=== PATIENT | male | born 1950 | race Two or more races ===

== ENCOUNTER 2016-12-15 23:18 | Emergency (ER) | payer OTHER, MEDICAID ==
[~2016-12-15] VITALS: Ht 165.1 cm; Wt 73.5 kg
[~2016-12-15 23:18] MED LIST: ALLO300T2 PO; AMIT50TA3 PO; BACL10TA PO; CLOP75TA41 PO; HYDR25TA4 PO; SIMV10TA84 PO; SUC1LQ PO; TAMS0.4C36 PO; VENL25TA2 PO
[2016-12-16 01:02] LABS: Basophils # (auto) 0 uL; Basophils % (auto) 0.3 % (0.0-2.0); Eosinophils # (auto) 0.2 uL; Eosinophils % (auto) 3.8 % (0.0-7.0); Hemoglobin 13.2 g/dL (13.5-17.5); Lymphocytes # (auto) 0.9 uL; Lymphocytes % (auto) 14.8 % (10.0-50.0); Mean Corpuscular Hemoglobin 30.2 pg (28.0-32.0); Mean Corpuscular Hgb Conc. 33.9 g/dL (32.0-36.0); Mean Corpuscular Volume 88.9 fL (80.0-100.0); Mean Platelet Volume 9.2 fL (7.4-10.4); Monocytes # (auto) 0.8 uL; Monocytes % (auto) 12.4 % (0.0-12.0); Neutrophils # (auto) 4.3 uL; Neutrophils % (auto) 68.7 % (37.0-80.0); Platelet Count (auto) 206 10^3/uL (140-450); Red Cell Distribution Width 13.3 % (11.6-16.0); White Blood Cell 6.2 10^3/uL (4.4-10.8)
[2016-12-16 01:21] LABS: Albumin 3.7 g/dL (3.4-5.0); Amylase 61 U/L (25-115); Anion Gap 10 (5-15); Aspartate Aminotransferase 17 U/L (15-37); BUN/Creatinine Ratio 13.5; Blood Urea Nitrogen 13 mg/dL (7-18); Calcium 8.6 mg/dL (8.5-10.1); Carbon Dioxide 26 mmol/L (21-32); Chloride 108 mmol/L (98-107); GFR African American 101 mL/min; GFR Non-African American 83 mL/min; Glucose 98 mg/dL (74-106); Magnesium 2.8 mg/dL (1.6-2.6); Potassium 3.5 mmol/L (3.5-5.1); Sodium 144 mmol/L (136-145)
[2016-12-16 01:26] LABS: Alkaline Phosphatase 96 U/L (45-117); Bilirubin, Total 0.5 mg/dL (0.2-1.0); Total Protein 7.7 g/dL (6.4-8.2)
[2016-12-16] MEDS ORDERED: SODIUM CHLORIDE 0.9% 1,000 ML IV ONE (03:00)
[2016-12-16] MEDS ORDERED: HYDROmorphone HCL 2 MG/ML VL IV ONE (03:00)
[2016-12-16] MEDS ORDERED: ONDANSETRON HCL 4 MG/2 ML VIAL IV ONE (03:00)
[2016-12-16 05:51] LABS: Urine RBC None Seen /hpf (0 - 3)
[2016-12-16 06:12] LABS: Urine Bilirubin Negative (Negative); Urine Blood Negative /uL (Negative); Urine Color Yellow (Yellow); Urine Glucose Normal (Normal); Urine Ketone Negative (Negative); Urine Nitrite Negative (Negative); Urine Urobilinogen Normal (Negative); Urine pH 6.5 (5.0-8.0)
[2016-12-16 09:23] VITALS: BP 143/90
== END 2016-12-16 09:40 | disposition home or self-care (01) ==
LOC: ER 23:19
DX: K44.9 Diaphragmatic hernia without obstruction or gangrene (principal); K57.30 Diverticulosis of large intestine without perforation or abscess without bleeding; C18.9 Malignant neoplasm of colon, unspecified; C79.89 Secondary malignant neoplasm of other specified sites; I25.10 Atherosclerotic heart disease of native coronary artery without angina pectoris; J44.9 Chronic obstructive pulmonary disease, unspecified; E11.9 Type 2 diabetes mellitus without complications; K21.9 Gastro-esophageal reflux disease without esophagitis; M10.9 Gout, unspecified; E78.5 Hyperlipidemia, unspecified; I10 Essential (primary) hypertension; I25.2 Old myocardial infarction; Z90.49 Acquired absence of other specified parts of digestive tract; D64.9 Anemia, unspecified; Z85.46 Personal history of malignant neoplasm of prostate; Z79.899 Other long term (current) drug therapy
CPT/HCPCS: 36415; 74176; 80053; 81001; 82150; 83690; 83735; 84484; 85025; 93005; 96361; 96374; 96375; 99285; J1170; J2405

== ENCOUNTER 2017-01-26 15:17 | Emergency (ER) | payer OTHER, MEDICAID ==
[~2017-01-26] VITALS: Ht 160 cm; Wt 78.0 kg
[2017-01-26 16:38] LABS: Albumin 3.7 g/dL (3.4-5.0); BUN/Creatinine Ratio 9.2; Calcium 8.3 mg/dL (8.5-10.1); Potassium 3.8 mmol/L (3.5-5.1)
[2017-01-26 16:41] LABS: Bilirubin, Total 0.3 mg/dL (0.2-1.0); Total Protein 7.3 g/dL (6.4-8.2)
[2017-01-26 17:36] LABS: Basophils # (auto) 0.1 uL; Basophils % (auto) 0.9 % (0.0-2.0); Eosinophils # (auto) 0.4 uL; Eosinophils % (auto) 6.1 % (0.0-7.0); Hematocrit 41.2 % (41.0-53.0); Lymphocytes # (auto) 0.8 uL; Lymphocytes % (auto) 11.2 % (10.0-50.0); Mean Corpuscular Hemoglobin 30.8 pg (28.0-32.0); Mean Corpuscular Volume 90.6 fL (80.0-100.0); Mean Platelet Volume 9.1 fL (6.9-10.8); Monocytes # (auto) 0.8 uL; Neutrophils # (auto) 5.1 uL; Neutrophils % (auto) 70.8 % (37.0-80.0); Nucleated Red Blood Cells % 0.4 %; Platelet Count (auto) 196 10^3/uL (140-450); Red Cell Distribution Width 14.3 % (11.8-14.3); White Blood Cell 7.2 10^3/uL (4.4-10.8)
[2017-01-26] MEDS ORDERED: ONDANSETRON HCL 4 MG/2 ML VIAL IV ONE (21:45)
[2017-01-26] MEDS ORDERED: MORPHINE SULF INJ 2 MG/ML SYRINGE 1ML IV ONE (21:45)
[2017-01-26 22:38] LABS: Basophils # (auto) 0.1 uL; Basophils % (auto) 1.1 % (0.0-2.0); Eosinophils # (auto) 0.5 uL; Eosinophils % (auto) 7.6 % (0.0-7.0); Hematocrit 38.8 % (41.0-53.0); Hemoglobin 13.2 g/dL (13.5-17.5); Lymphocytes # (auto) 0.9 uL; Lymphocytes % (auto) 14.7 % (10.0-50.0); Mean Corpuscular Hemoglobin 30.9 pg (28.0-32.0); Mean Corpuscular Hgb Conc. 34.1 g/dL (32.0-36.0); Mean Corpuscular Volume 90.6 fL (80.0-100.0); Mean Platelet Volume 8.3 fL (6.9-10.8); Monocytes # (auto) 0.8 uL; Monocytes % (auto) 12.7 % (0.0-12.0); Neutrophils # (auto) 3.9 uL; Neutrophils % (auto) 63.9 % (37.0-80.0); Nucleated Red Blood Cells % 0.2 %; Platelet Count (auto) 181 10^3/uL (140-450); Red Cell Distribution Width 14.3 % (11.8-14.3); White Blood Cell 6.1 10^3/uL (4.4-10.8)
[2017-01-26 22:57] LABS: Albumin 3.3 g/dL (3.4-5.0); Anion Gap 5 (5-15); Aspartate Aminotransferase 15 U/L (15-37); BUN/Creatinine Ratio 11.7; Blood Urea Nitrogen 9 mg/dL (7-18); Calcium 8.2 mg/dL (8.5-10.1); Carbon Dioxide 26 mmol/L (21-32); Chloride 112 mmol/L (98-107); GFR African American 130 mL/min; GFR Non-African American 107 mL/min; Glucose 106 mg/dL (74-106); Potassium 4.1 mmol/L (3.5-5.1); Sodium 143 mmol/L (136-145)
[2017-01-26 22:58] LABS: Partial Thromboplastin Time 25.9 sec (22.64-33.71); Prothrombin Time 10.9 sec (9.37-12.3)
[2017-01-26 23:02] LABS: Alkaline Phosphatase 83 U/L (45-117); Bilirubin, Total 0.3 mg/dL (0.2-1.0); Total Protein 6.9 g/dL (6.4-8.2)
[2017-01-27 00:01] LABS: Urine RBC None Seen /hpf (0 - 3)
[2017-01-27 00:15] LABS: Urine Bilirubin Negative (Negative); Urine Blood Negative /uL (Negative); Urine Color Yellow (Yellow); Urine Glucose Normal (Normal); Urine Ketone Negative (Negative); Urine Mucus FEW (None Seen); Urine Nitrite Negative (Negative); Urine Squamous Epithelial Cell FEW /hpf (<5); Urine pH 5.5 (5.0-8.0)
[2017-01-27 00:25] VITALS: BP 124/54
== END 2017-01-27 01:11 | disposition home or self-care (01) ==
LOC: ER 15:17 → EDUNIT# 15:17 → ER 01-27 01:11
DX: K46.9 Unspecified abdominal hernia without obstruction or gangrene (principal); I10 Essential (primary) hypertension
CPT/HCPCS: 36415; 74176; 80053; 81001; 84484; 85025; 85610; 85730; 93005; 96374; 96375; 99285; J2270; J2405

== ENCOUNTER 2017-10-14 16:44 | Inpatient (IN) | payer OTHER, MEDICAID ==
[~2017-10-14] VITALS: Ht 172.7 cm; Wt 75.4 kg
[~2017-10-14 16:44] MED LIST changes: -SUC1LQ PO; +SUCR1SUS10 PO
[2017-10-14] MEDS ORDERED: SODIUM CHLORIDE 0.9% 1,000 ML IV ONE (16:55)
[2017-10-14] MEDS ORDERED: PANTOPRAZOLE 40 MG/10 ML VIAL IV STA (16:55)
[2017-10-14] MEDS ORDERED: ONDANSETRON HCL 4 MG/2 ML VIAL IV ONE (17:00)
[2017-10-14] MEDS ORDERED: MEPERIDINE HCL (25 MG/ML) 1ML VIAL IV ONE (17:00)
[2017-10-14 17:20] LABS: Basophils # (auto) 0 uL; Basophils % (auto) 0.3 % (0.0-2.0); Eosinophils # (auto) 0 uL; Eosinophils % (auto) 0.3 % (0.0-7.0); Hematocrit 44.4 % (41.0-53.0); Hemoglobin 15.2 g/dL (13.5-17.5); Lymphocytes # (auto) 0.5 uL; Lymphocytes % (auto) 4.8 % (10.0-50.0); Mean Corpuscular Hemoglobin 30.3 pg (28.0-32.0); Mean Corpuscular Hgb Conc. 34.2 g/dL (32.0-36.0); Mean Corpuscular Volume 88.7 fL (80.0-100.0); Monocytes # (auto) 0.6 uL; Monocytes % (auto) 5.6 % (0.0-12.0); Neutrophils # (auto) 9.8 uL; Platelet Count (auto) 222 10^3/uL (140-450); Red Blood Cells 5.01 10^6/uL (4.5-5.90); Red Cell Distribution Width 14.5 % (11.8-14.3)
[2017-10-14 17:41] LABS: Alanine Aminotransferase 17 U/L (16-61); Albumin 3.8 g/dL (3.4-5.0); Alkaline Phosphatase 103 U/L (45-117); Amylase 58 U/L (25-115); Anion Gap 12 (5-15); Aspartate Aminotransferase 10 U/L (15-37); BUN/Creatinine Ratio 18.1; Bilirubin, Total 0.4 mg/dL (0.2-1.0); Blood Urea Nitrogen 15 mg/dL (7-18); Calcium 8.7 mg/dL (8.5-10.1); Carbon Dioxide 19 mmol/L (21-32); Chloride 103 mmol/L (98-107); GFR African American 119 mL/min; GFR Non-African American 98 mL/min; Glucose 169 mg/dL (74-106); Lipase 100 U/L (73-393); Magnesium 2.2 mg/dL (1.6-2.6); Potassium 3.7 mmol/L (3.5-5.1); Sodium 134 mmol/L (136-145); Total Protein 8.1 g/dL (6.4-8.2)
[2017-10-14] MEDS ORDERED: MEPERIDINE HCL (50 MG/ML) 1 ML VIAL ONE (18:24)
[2017-10-14] MEDS ORDERED: fentaNYL CITRATE 100 MCG/2 ML VL IV ONE (19:45)
[2017-10-14] MEDS ORDERED: ONDANSETRON HCL 4 MG/2 ML VIAL IV PRN (20:45)
[2017-10-14] MEDS ORDERED: ACETAMINOPHEN 325 MG TAB PO PRN (20:45)
[2017-10-14] MEDS: VENLAFAXINE HCL 37.5MG TABLET PO SCH (22:30)
[2017-10-14] MEDS: FAMOTIDINE 20 MG TAB PO SCH (22:30)
[2017-10-14] MEDS: metroNIDAZOLE 500MG/100ML 100 ML IV SCH (22:30)
[2017-10-15] MEDS: NALBUPHINE HCL 10 MG/1ml INJECTION IV PRN ×5 (00:25→19:51)
[2017-10-15 01:43] LABS: Urine Bacteria NONE SEEN /hpf (None Seen); Urine Blood Negative /uL (Negative); Urine Mucus FEW (None Seen); Urine Specific Gravity 1.022 (1.001-1.035); Urine WBC <1 /hpf (0 - 3)
[2017-10-15] MEDS: metroNIDAZOLE 500MG/100ML 100 ML IV SCH ×3 (06:04→21:18)
[2017-10-15 06:12] LABS: Basophils # (auto) 0 uL; Basophils % (auto) 0.3 % (0.0-2.0); Eosinophils # (auto) 0.2 uL; Eosinophils % (auto) 2.5 % (0.0-7.0); Hematocrit 38.3 % (41.0-53.0); Hemoglobin 13.4 g/dL (13.5-17.5); Lymphocytes # (auto) 0.9 uL; Lymphocytes % (auto) 11.7 % (10.0-50.0); Mean Corpuscular Hemoglobin 30.5 pg (28.0-32.0); Mean Corpuscular Volume 87.2 fL (80.0-100.0); Monocytes # (auto) 0.9 uL; Monocytes % (auto) 12.8 % (0.0-12.0); Neutrophils # (auto) 5.3 uL; Neutrophils % (auto) 72.7 % (37.0-80.0); Nucleated Red Blood Cells % 0.1 %; Platelet Count (auto) 191 10^3/uL (140-450); Red Blood Cells 4.39 10^6/uL (4.5-5.90); Red Cell Distribution Width 14.2 % (11.8-14.3); White Blood Cell 7.3 10^3/uL (4.4-10.8)
[2017-10-15 06:34] LABS: Albumin 3.1 g/dL (3.4-5.0); BUN/Creatinine Ratio 14.7; Bilirubin, Total 0.5 mg/dL (0.2-1.0); Calcium 7.6 mg/dL (8.5-10.1); Potassium 3.4 mmol/L (3.5-5.1); Total Protein 6.4 g/dL (6.4-8.2)
[2017-10-15] MEDS: cloNIDine HCL 0.1 MG TAB PO PRN (07:14)
[2017-10-15] MEDS ORDERED: DIPH2.5T73 PO (08:26)
[2017-10-15] MEDS ORDERED: OMEP20TA PO (08:26)
[2017-10-15] MEDS ORDERED: MELA3TAB27 PO (08:26)
[2017-10-15] MEDS ORDERED: COLC1TAB3 PO (08:26)
[2017-10-15] MEDS ORDERED: TERB250T66 PO (08:26)
[2017-10-15] MEDS: HYDROcodone-ACET 5/325MG TAB PO PRN (09:16)
[2017-10-15] MEDS: FAMOTIDINE 20 MG TAB PO SCH (10:00)
[2017-10-15] MEDS: ALLOPURINOL 300 MG TAB PO SCH (10:00)
[2017-10-15] MEDS: VENLAFAXINE HCL 37.5MG TABLET PO SCH ×2 (10:35→21:19)
[2017-10-15] MEDS: HCTZ 25 MG TAB PO SCH (10:37)
[2017-10-15] MEDS: CLOPIDOGREL BISULFATE 75 MG TAB PO SCH (10:38)
[2017-10-15] MEDS: ENOXAPARIN SOD 40 MG/0.4 ML SYRINGE SC SCH (10:39)
[2017-10-15] MEDS ORDERED: TAMSULOSIN HYDROCHLORIDE 0.4 MG CAP PO ONE (11:00)
[2017-10-15] MEDS: PANTOPRAZOLE 40 MG TAB PO SCH (11:05)
[2017-10-15] MEDS ORDERED: cefTRIAXone 1GM/10ml IVPUSH 10 ML IV ONE (11:15)
[2017-10-15] MEDS ORDERED: POTASSIUM CHL 10 Meq TABLET PO ONE (11:15)
[2017-10-15] MEDS: SODIUM CHLORIDE 0.9% 1,000 ML IV SCH ×2 (11:19→15:32)
[2017-10-15] MEDS: BOOST PLUS 8 ounce PO SCH ×3 (12:59→21:18)
[2017-10-15 16:00] VITALS: BP 121/75
[2017-10-15] MEDS: PRAVASTATIN SODIUM 20 MG TAB PO SCH (21:19)
[2017-10-15 21:51] VITALS: BP 127/73
[2017-10-16] MEDS: SODIUM CHLORIDE 0.9% 1,000 ML IV SCH ×3 (04:48→19:15)
[2017-10-16 05:05] VITALS: BP 136/80
[2017-10-16] MEDS: metroNIDAZOLE 500MG/100ML 100 ML IV SCH ×3 (05:24→21:18)
[2017-10-16 06:18] LABS: Basophils # (auto) 0.1 uL; Basophils % (auto) 0.9 % (0.0-2.0); Eosinophils # (auto) 0.3 uL; Eosinophils % (auto) 4.8 % (0.0-7.0); Hematocrit 35.5 % (41.0-53.0); Hemoglobin 12.6 g/dL (13.5-17.5); Lymphocytes # (auto) 0.7 uL; Lymphocytes % (auto) 11.2 % (10.0-50.0); Mean Corpuscular Hemoglobin 30.6 pg (28.0-32.0); Mean Corpuscular Hgb Conc. 35.4 g/dL (32.0-36.0); Mean Corpuscular Volume 86.3 fL (80.0-100.0); Monocytes # (auto) 0.7 uL; Monocytes % (auto) 11.1 % (0.0-12.0); Neutrophils # (auto) 4.3 uL; Nucleated Red Blood Cells % 0.1 %; Platelet Count (auto) 167 10^3/uL (140-450); Red Blood Cells 4.11 10^6/uL (4.5-5.90); Red Cell Distribution Width 14.3 % (11.8-14.3)
[2017-10-16] MEDS: NALBUPHINE HCL 10 MG/1ml INJECTION IV PRN ×4 (06:22→19:33)
[2017-10-16 06:36] LABS: BUN/Creatinine Ratio 15.2; Calcium 7.7 mg/dL (8.5-10.1); Potassium 3.5 mmol/L (3.5-5.1)
[2017-10-16] MEDS: BOOST PLUS 8 ounce PO SCH ×4 (06:42→21:19)
[2017-10-16 08:19] VITALS: BP 158/81
[2017-10-16] MEDS: CLOPIDOGREL BISULFATE 75 MG TAB PO SCH (09:43)
[2017-10-16] MEDS: cefTRIAXone 1GM/10ml IVPUSH 10 ML IV SCH (09:43)
[2017-10-16] MEDS: PANTOPRAZOLE 40 MG TAB PO SCH (09:43)
[2017-10-16] MEDS: ENOXAPARIN SOD 40 MG/0.4 ML SYRINGE SC SCH (09:43)
[2017-10-16] MEDS: VENLAFAXINE HCL 37.5MG TABLET PO SCH ×2 (09:43→21:19)
[2017-10-16] MEDS: ALLOPURINOL 300 MG TAB PO SCH (09:43)
[2017-10-16] MEDS: HCTZ 25 MG TAB PO SCH (09:44)
[2017-10-16] MEDS ORDERED: GASTROGRAFIN 30 ML SOL ONE (10:02)
[2017-10-16 12:19] VITALS: BP 161/91
[2017-10-16] MEDS ORDERED: IOHEXOL 300 MG/ML 75ml BOTTLE IJ ONE (13:03)
[2017-10-16] MEDS: HYOSCYAMINE SULF 0.125 MG TAB PO PRN (14:29)
[2017-10-16 16:47] VITALS: BP 157/97
[2017-10-16] MEDS: PRAVASTATIN SODIUM 20 MG TAB PO SCH (21:19)
[2017-10-16] MEDS: TEMAZEPAM 15 MG CAP PO PRN (21:25)
[2017-10-16 22:00] VITALS: BP 143/96
[2017-10-17] MEDS: SODIUM CHLORIDE 0.9% 1,000 ML IV SCH ×3 (03:23→18:45)
[2017-10-17] MEDS: NALBUPHINE HCL 10 MG/1ml INJECTION IV PRN ×4 (05:09→19:58)
[2017-10-17] MEDS: BOOST PLUS 8 ounce PO SCH ×4 (05:24→21:06)
[2017-10-17] MEDS: metroNIDAZOLE 500MG/100ML 100 ML IV SCH ×3 (05:24→21:05)
[2017-10-17 05:46] VITALS: BP 162/99
[2017-10-17] MEDS: cloNIDine HCL 0.1 MG TAB PO PRN (06:02)
[2017-10-17] MEDS: HYDROcodone-ACET 5/325MG TAB PO PRN ×2 (06:05→21:11)
[2017-10-17 06:12] LABS: Basophils # (auto) 0 uL; Basophils % (auto) 0.7 % (0.0-2.0); Eosinophils # (auto) 0.3 uL; Eosinophils % (auto) 4.2 % (0.0-7.0); Hematocrit 41.1 % (41.0-53.0); Hemoglobin 14.4 g/dL (13.5-17.5); Lymphocytes # (auto) 0.7 uL; Lymphocytes % (auto) 9.3 % (10.0-50.0); Mean Corpuscular Hemoglobin 30.2 pg (28.0-32.0); Mean Corpuscular Volume 86.2 fL (80.0-100.0); Monocytes % (auto) 14.3 % (0.0-12.0); Neutrophils % (auto) 71.5 % (37.0-80.0); Nucleated Red Blood Cells % 0.1 %; Platelet Count (auto) 197 10^3/uL (140-450); Red Blood Cells 4.77 10^6/uL (4.5-5.90); Red Cell Distribution Width 14.4 % (11.8-14.3)
[2017-10-17 06:35] LABS: Albumin 3.3 g/dL (3.4-5.0); BUN/Creatinine Ratio 8.2; Bilirubin, Total 0.6 mg/dL (0.2-1.0); Calcium 8.2 mg/dL (8.5-10.1); Potassium 3.4 mmol/L (3.5-5.1); Total Protein 6.8 g/dL (6.4-8.2)
[2017-10-17 08:00] VITALS: BP 122/67
[2017-10-17 09:00] VITALS: BP 144/89
[2017-10-17] MEDS ORDERED: TAMSULOSIN HYDROCHLORIDE 0.4 MG CAP PO ONE (09:15)
[2017-10-17] MEDS ORDERED: POTASSIUM CHL 10 Meq TABLET PO ONE (09:15)
[2017-10-17] MEDS: HCTZ 25 MG TAB PO SCH (10:30)
[2017-10-17] MEDS: CLOPIDOGREL BISULFATE 75 MG TAB PO SCH (10:30)
[2017-10-17] MEDS: PANTOPRAZOLE 40 MG TAB PO SCH (10:30)
[2017-10-17] MEDS: ALLOPURINOL 300 MG TAB PO SCH (10:30)
[2017-10-17] MEDS: ENOXAPARIN SOD 40 MG/0.4 ML SYRINGE SC SCH (10:30)
[2017-10-17] MEDS: cefTRIAXone 1GM/10ml IVPUSH 10 ML IV SCH (10:30)
[2017-10-17] MEDS: VENLAFAXINE HCL 37.5MG TABLET PO SCH ×2 (11:00→21:05)
[2017-10-17 12:30] VITALS: BP 133/83
[2017-10-17 17:18] VITALS: BP 137/94
[2017-10-17] MEDS: TAMSULOSIN HYDROCHLORIDE 0.4 MG CAP PO SCH (18:45)
[2017-10-17] MEDS: PRAVASTATIN SODIUM 20 MG TAB PO SCH (21:05)
[2017-10-17 21:52] VITALS: BP 119/79
[2017-10-17] MEDS: TEMAZEPAM 15 MG CAP PO PRN (23:20)
[2017-10-18] MEDS: NALBUPHINE HCL 10 MG/1ml INJECTION IV PRN ×3 (01:33→17:05)
[2017-10-18] MEDS: SODIUM CHLORIDE 0.9% 1,000 ML IV SCH ×3 (03:15→13:50)
[2017-10-18 05:00] VITALS: BP 127/93
[2017-10-18] MEDS: metroNIDAZOLE 500MG/100ML 100 ML IV SCH (05:28)
[2017-10-18] MEDS: BOOST PLUS 8 ounce PO SCH (05:29)
[2017-10-18 06:19] LABS: Basophils # (auto) 0 uL; Basophils % (auto) 0.7 % (0.0-2.0); Eosinophils # (auto) 0.3 uL; Eosinophils % (auto) 5.6 % (0.0-7.0); Hematocrit 38.7 % (41.0-53.0); Hemoglobin 13.7 g/dL (13.5-17.5); Lymphocytes # (auto) 0.7 uL; Lymphocytes % (auto) 12.5 % (10.0-50.0); Mean Corpuscular Hemoglobin 30.2 pg (28.0-32.0); Mean Corpuscular Hgb Conc. 35.3 g/dL (32.0-36.0); Mean Corpuscular Volume 85.5 fL (80.0-100.0); Monocytes # (auto) 0.8 uL; Monocytes % (auto) 14.7 % (0.0-12.0); Neutrophils # (auto) 3.5 uL; Neutrophils % (auto) 66.5 % (37.0-80.0); Nucleated Red Blood Cells % 0.1 %; Platelet Count (auto) 193 10^3/uL (140-450); Red Blood Cells 4.53 10^6/uL (4.5-5.90); Red Cell Distribution Width 14.3 % (11.8-14.3); White Blood Cell 5.3 10^3/uL (4.4-10.8)
[2017-10-18 06:46] LABS: Albumin 3.2 g/dL (3.4-5.0); BUN/Creatinine Ratio 7.1; Bilirubin, Total 0.8 mg/dL (0.2-1.0); Calcium 8.1 mg/dL (8.5-10.1); Potassium 3.7 mmol/L (3.5-5.1); Total Protein 6.3 g/dL (6.4-8.2)
[2017-10-18 08:16] VITALS: BP 154/95
[2017-10-18] MEDS: HYOSCYAMINE SULF 0.125 MG TAB PO PRN (08:18)
[2017-10-18] MEDS: CLOPIDOGREL BISULFATE 75 MG TAB PO SCH (09:49)
[2017-10-18] MEDS: PANTOPRAZOLE 40 MG TAB PO SCH (09:49)
[2017-10-18] MEDS: HCTZ 25 MG TAB PO SCH (09:49)
[2017-10-18] MEDS: cefTRIAXone 1GM/10ml IVPUSH 10 ML IV SCH (09:49)
[2017-10-18] MEDS: ALLOPURINOL 300 MG TAB PO SCH (09:49)
[2017-10-18] MEDS: HYDROcodone-ACET 5/325MG TAB PO PRN (09:50)
[2017-10-18] MEDS: ENOXAPARIN SOD 40 MG/0.4 ML SYRINGE SC SCH (09:50)
[2017-10-18] MEDS: VENLAFAXINE HCL 37.5MG TABLET PO SCH ×2 (09:53→21:29)
[2017-10-18] MEDS ORDERED: GOLYTELY 4L KIT PO ONE ×2 (11:45)
[2017-10-18 12:57] LABS: INR 1.13 (0.9-1.15); Partial Thromboplastin Time 32.3 sec (23.78-33.04)
[2017-10-18 13:00] VITALS: BP_SYST 117; BP_SYST 126; BP_DIAS 72; BP_DIAS 95
[2017-10-18] MEDS: MORPHINE SULF 15mg ER tab PO SCH ×2 (14:23→21:30)
[2017-10-18] MEDS: Boost Breeze 8 Ounces PO SCH ×2 (14:24→22:00)
[2017-10-18 16:46] VITALS: BP 117/72
[2017-10-18] MEDS: TAMSULOSIN HYDROCHLORIDE 0.4 MG CAP PO SCH (17:48)
[2017-10-18] MEDS: PRAVASTATIN SODIUM 20 MG TAB PO SCH (21:29)
[2017-10-18 22:00] VITALS: BP 139/111
[2017-10-19] MEDS: SODIUM CHLORIDE 0.9% 1,000 ML IV SCH (02:20)
[2017-10-19 05:11] VITALS: BP 135/85
[2017-10-19] MEDS ORDERED: GOLYTELY 4L KIT PO ONE (06:00)
[2017-10-19 07:48] VITALS: BP 140/79
[2017-10-19] MEDS: Boost Breeze 8 Ounces PO SCH ×2 (08:49→16:24)
[2017-10-19] MEDS: NALBUPHINE HCL 10 MG/1ml INJECTION IV PRN ×2 (08:55→16:22)
[2017-10-19] MEDS ORDERED: CLOPIDOGREL BISULFATE 75 MG TAB PO SCH (10:00)
[2017-10-19] MEDS: VENLAFAXINE HCL 37.5MG TABLET PO SCH ×2 (10:18→21:26)
[2017-10-19] MEDS: ALLOPURINOL 300 MG TAB PO SCH (10:18)
[2017-10-19] MEDS: MORPHINE SULF 15mg ER tab PO SCH ×2 (10:18→21:27)
[2017-10-19] MEDS: PANTOPRAZOLE 40 MG TAB PO SCH (10:18)
[2017-10-19] MEDS: ENOXAPARIN SOD 40 MG/0.4 ML SYRINGE SC SCH (10:18)
[2017-10-19] MEDS: HCTZ 25 MG TAB PO SCH (10:19)
[2017-10-19 12:19] VITALS: BP 141/94
[2017-10-19 16:47] VITALS: BP 142/92
[2017-10-19] MEDS: TAMSULOSIN HYDROCHLORIDE 0.4 MG CAP PO SCH (18:12)
[2017-10-19] MEDS: HYDROcodone-ACET 5/325MG TAB PO PRN (18:17)
[2017-10-19] MEDS: PRAVASTATIN SODIUM 20 MG TAB PO SCH (21:27)
[2017-10-19 22:00] VITALS: BP 104/77
[2017-10-20] MEDS: NALBUPHINE HCL 10 MG/1ml INJECTION IV PRN ×4 (04:51→23:06)
[2017-10-20 05:00] VITALS: BP 126/82
[2017-10-20] MEDS: HYDROcodone-ACET 5/325MG TAB PO PRN (08:03)
[2017-10-20 09:40] VITALS: BP 129/70
[2017-10-20] MEDS: VENLAFAXINE HCL 37.5MG TABLET PO SCH ×2 (10:12→21:59)
[2017-10-20] MEDS: ENOXAPARIN SOD 40 MG/0.4 ML SYRINGE SC SCH (10:12)
[2017-10-20] MEDS: PANTOPRAZOLE 40 MG TAB PO SCH (10:13)
[2017-10-20] MEDS: ALLOPURINOL 300 MG TAB PO SCH (10:13)
[2017-10-20] MEDS: MORPHINE SULF 15mg ER tab PO SCH ×2 (10:13→21:59)
[2017-10-20] MEDS: HCTZ 25 MG TAB PO SCH (10:14)
[2017-10-20 12:52] VITALS: BP 147/102
[2017-10-20] MEDS: Boost Breeze 8 Ounces PO SCH ×2 (14:15→22:01)
[2017-10-20 17:38] VITALS: BP 97/66
[2017-10-20] MEDS: TAMSULOSIN HYDROCHLORIDE 0.4 MG CAP PO SCH (18:08)
[2017-10-20 21:59] VITALS: BP 124/76
[2017-10-20] MEDS: PRAVASTATIN SODIUM 20 MG TAB PO SCH (21:59)
[2017-10-21 05:00] VITALS: BP 127/73
[2017-10-21 09:00] VITALS: BP 125/82
[2017-10-21] MEDS: ENOXAPARIN SOD 40 MG/0.4 ML SYRINGE SC SCH (09:54)
[2017-10-21] MEDS: VENLAFAXINE HCL 37.5MG TABLET PO SCH ×2 (09:54→21:35)
[2017-10-21] MEDS: MORPHINE SULF 15mg ER tab PO SCH ×2 (09:55→21:35)
[2017-10-21] MEDS: ALLOPURINOL 300 MG TAB PO SCH (09:56)
[2017-10-21] MEDS: HCTZ 25 MG TAB PO SCH (09:56)
[2017-10-21] MEDS: PANTOPRAZOLE 40 MG TAB PO SCH (09:56)
[2017-10-21 12:41] VITALS: BP 108/69
[2017-10-21] MEDS: NALBUPHINE HCL 10 MG/1ml INJECTION IV PRN ×2 (14:14→18:15)
[2017-10-21] MEDS: Boost Breeze 8 Ounces PO SCH ×2 (14:17→22:00)
[2017-10-21 16:39] VITALS: BP 106/70
[2017-10-21] MEDS: TAMSULOSIN HYDROCHLORIDE 0.4 MG CAP PO SCH (18:15)
[2017-10-21] MEDS: HYDROcodone-ACET 5/325MG TAB PO PRN (20:43)
[2017-10-21] MEDS: PRAVASTATIN SODIUM 20 MG TAB PO SCH (21:35)
[2017-10-21] MEDS: TEMAZEPAM 15 MG CAP PO PRN (21:35)
[2017-10-21 22:00] VITALS: BP 101/60
[2017-10-22 05:00] VITALS: BP 137/85
[2017-10-22 09:00] VITALS: BP 117/80
[2017-10-22] MEDS ORDERED: HYDROcodone-ACET 5/325MG TAB PO PRN (09:30)
[2017-10-22] MEDS ORDERED: TEMAZEPAM 15 MG CAP PO PRN (09:30)
[2017-10-22] MEDS: ENOXAPARIN SOD 40 MG/0.4 ML SYRINGE SC SCH (09:49)
[2017-10-22] MEDS: VENLAFAXINE HCL 37.5MG TABLET PO SCH ×2 (09:49→21:23)
[2017-10-22] MEDS: MORPHINE SULF 15mg ER tab PO SCH ×2 (09:50→21:23)
[2017-10-22] MEDS: PANTOPRAZOLE 40 MG TAB PO SCH (09:50)
[2017-10-22] MEDS: HCTZ 25 MG TAB PO SCH (09:50)
[2017-10-22] MEDS: ALLOPURINOL 300 MG TAB PO SCH (09:50)
[2017-10-22 13:00] VITALS: BP 135/83
[2017-10-22] MEDS: Boost Breeze 8 Ounces PO SCH (14:00)
[2017-10-22] MEDS: NALBUPHINE HCL 10 MG/1ml INJECTION IV PRN (14:52)
[2017-10-22 17:00] VITALS: BP 125/71
[2017-10-22] MEDS: TAMSULOSIN HYDROCHLORIDE 0.4 MG CAP PO SCH (18:12)
[2017-10-22] MEDS: BOOST PLUS 8 ounce PO SCH (18:16)
[2017-10-22] MEDS: PRAVASTATIN SODIUM 20 MG TAB PO SCH (21:23)
[2017-10-22 22:00] VITALS: BP 110/76
[2017-10-23 05:00] VITALS: BP 115/72
[2017-10-23] MEDS: NALBUPHINE HCL 10 MG/1ml INJECTION IV PRN ×3 (06:55→18:05)
[2017-10-23] MEDS: BOOST PLUS 8 ounce PO SCH ×3 (08:00→21:56)
[2017-10-23 09:00] VITALS: BP 130/77
[2017-10-23] MEDS: ENOXAPARIN SOD 40 MG/0.4 ML SYRINGE SC SCH (10:00)
[2017-10-23] MEDS: HCTZ 25 MG TAB PO SCH (10:14)
[2017-10-23] MEDS: PANTOPRAZOLE 40 MG TAB PO SCH (10:14)
[2017-10-23] MEDS: ALLOPURINOL 300 MG TAB PO SCH (10:15)
[2017-10-23] MEDS: MORPHINE SULF 15mg ER tab PO SCH ×2 (10:15→21:57)
[2017-10-23] MEDS: VENLAFAXINE HCL 37.5MG TABLET PO SCH ×2 (10:21→21:57)
[2017-10-23] MEDS ORDERED: GOLYTELY 4L KIT PO ONE (10:30)
[2017-10-23 12:01] LABS: Basophils # (auto) 0.1 uL; Basophils % (auto) 0.8 % (0.0-2.0); Eosinophils # (auto) 0.4 uL; Eosinophils % (auto) 4.4 % (0.0-7.0); Hematocrit 41.3 % (41.0-53.0); Hemoglobin 14.3 g/dL (13.5-17.5); Lymphocytes # (auto) 0.8 uL; Lymphocytes % (auto) 9.7 % (10.0-50.0); Mean Corpuscular Hemoglobin 29.9 pg (28.0-32.0); Mean Corpuscular Hgb Conc. 34.7 g/dL (32.0-36.0); Mean Corpuscular Volume 86.1 fL (80.0-100.0); Monocytes # (auto) 1.1 uL; Monocytes % (auto) 12.8 % (0.0-12.0); Neutrophils # (auto) 6.4 uL; Neutrophils % (auto) 72.3 % (37.0-80.0); Nucleated Red Blood Cells % 0.1 %; Platelet Count (auto) 208 10^3/uL (140-450); White Blood Cell 8.8 10^3/uL (4.4-10.8)
[2017-10-23 13:00] VITALS: BP 139/70
[2017-10-23 14:11] LABS: Calcium 8.7 mg/dL (8.5-10.1); Potassium 3.8 mmol/L (3.5-5.1)
[2017-10-23 14:24] LABS: Partial Thromboplastin Time 28.1 sec (23.78-33.04); Prothrombin Time 10.7 sec (9.27-12.13)
[2017-10-23 17:00] VITALS: BP 123/78
[2017-10-23] MEDS: TAMSULOSIN HYDROCHLORIDE 0.4 MG CAP PO SCH (18:02)
[2017-10-23] MEDS: PRAVASTATIN SODIUM 20 MG TAB PO SCH (21:56)
[2017-10-23 22:00] VITALS: BP 130/90
[2017-10-23] MEDS: SOD CHL 0.9%/ KCL 20MEQ 1,000 ML IV SCH (22:00)
[2017-10-24] MEDS: SOD CHL 0.9%/ KCL 20MEQ 1,000 ML IV SCH (04:50)
[2017-10-24 05:00] VITALS: BP 135/97
[2017-10-24] MEDS: BOOST PLUS 8 ounce PO SCH ×2 (07:49→12:00)
[2017-10-24 09:00] VITALS: BP 140/89
[2017-10-24] MEDS ORDERED: NALOXONE HCL 0.4 MG/ML VIAL ONE (10:49)
[2017-10-24] MEDS ORDERED: FLUMAZENIL 0.1 MG/ML INJ 10ML MDV IV ONE (10:49)
[2017-10-24] MEDS ORDERED: diphenhdrAMINE HCL 50 MG/1 ML VL ONE (10:49)
[2017-10-24] MEDS ORDERED: SODIUM CHLORIDE LOCK 10 ML ONE (10:49)
[2017-10-24] MEDS ORDERED: LIDOCAINE VISCOUS 2% 15ML UD ONE (10:49)
[2017-10-24] MEDS: MIDAZOLAM HCL 5 MG/ML-1ML VIAL ONE ×2 (11:23→11:27)
[2017-10-24] MEDS: fentaNYL CITRATE 100 MCG/2 ML VL ONE ×2 (11:23→11:27)
[2017-10-24 13:04] VITALS: BP 138/80
[2017-10-24] MEDS: VENLAFAXINE HCL 37.5MG TABLET PO SCH (13:06)
[2017-10-24] MEDS: HCTZ 25 MG TAB PO SCH (13:06)
[2017-10-24] MEDS: PANTOPRAZOLE 40 MG TAB PO SCH (13:07)
[2017-10-24] MEDS: ALLOPURINOL 300 MG TAB PO SCH (13:07)
[2017-10-24] MEDS: MORPHINE SULF 15mg ER tab PO SCH (13:07)
[2017-10-24] MEDS ORDERED: METO10TA3 PO (15:12)
[2017-10-24] MEDS ORDERED: PANT40T PO (15:12)
[2017-10-24 16:19] VITALS: BP 128/76
[2017-10-24] MEDS ORDERED: METOCLOPRAMIDE HCL 10 MG TAB PO SCH (22:00)
== END 2017-10-24 17:40 | disposition home or self-care (01) | DRG 392 ==
LOC: ER 16:44 → EDBD 16:44 → TELE 16:45 → EAST 10-15 14:50
PROVIDERS: ADMIT Nurse Practitioner; ATTEND Internal Medicine
PROC: 0DB68ZX Excision of Stomach, Via Natural or Artificial Opening Endoscopic, Diagnostic (ICD-10-PCS; principal; 2017-10-24 11:18)
PROC: 0DJD8ZZ Inspection of Lower Intestinal Tract, Via Natural or Artificial Opening Endoscopic (ICD-10-PCS; 2017-10-24 11:18)
DX: K31.84 Gastroparesis (principal); C79.51 Secondary malignant neoplasm of bone; C78.5 Secondary malignant neoplasm of large intestine and rectum; E44.0 Moderate protein-calorie malnutrition; E87.1 Hypo-osmolality and hyponatremia; K52.9 Noninfective gastroenteritis and colitis, unspecified; C61 Malignant neoplasm of prostate; I10 Essential (primary) hypertension; F32.9 Major depressive disorder, single episode, unspecified; F41.9 Anxiety disorder, unspecified; I25.10 Atherosclerotic heart disease of native coronary artery without angina pectoris; K44.9 Diaphragmatic hernia without obstruction or gangrene; K57.30 Diverticulosis of large intestine without perforation or abscess without bleeding; Z82.0 Family history of epilepsy and other diseases of the nervous system; Z83.3 Family history of diabetes mellitus; Z85.46 Personal history of malignant neoplasm of prostate; Z85.830 Personal history of malignant neoplasm of bone; Z98.61 Coronary angioplasty status; K20.9 Esophagitis, unspecified
CPT/HCPCS: 36415; 71045; 74176; 74177; 80048; 80053; 81001; 82150; 83690; 83735; 84484; 85025; 85610; 85730; 86850; 86900; 86901; 87045; 87493; 87899; 93005; 94761; 96361; 96372; 96374; 96375; C9113; J2250; J2405; J3490; Q9967

== ENCOUNTER 2020-11-10 10:46 | Inpatient (IN) | payer OTHER, MEDICAID ==
[~2020-11-10] VITALS: Ht 170.2 cm; Wt 75.1 kg
[~2020-11-10 10:46] MED LIST changes: +ABIR250T PO; -ALLO300T2 PO; -AMIT50TA3 PO; -BACL10TA PO; -CLOP75TA41 PO; +CLOP75TA70 PO; +COLC1TAB3 PO; +DIPH2.5T73 PO; -HYDR25TA4 PO; +MELA3TAB27 PO; +MET50T PO; +METF-370 PO; +METO10TA3 PO; +PANT40T PO; +PRE5T PO; -SIMV10TA84 PO; -SUCR1SUS10 PO; +TERB250T66 PO; -VENL25TA2 PO
[2020-11-10 12:12] LABS: Basophils # (auto) 0.1 10 ^3/uL (0-0.2); Basophils % (auto) 0.4 % (0.0-2.0); Eosinophils # (auto) 0 10 ^3/uL (0-0.8); Hematocrit 43.1 % (41.0-53.0); Hemoglobin 14.3 g/dL (13.5-17.5); Lymphocytes # (auto) 0.3 10 ^3/uL (0.4-5.4); Lymphocytes % (auto) 2.1 % (10.0-50.0); Mean Corpuscular Hemoglobin 28.9 pg (28.0-32.0); Mean Corpuscular Hgb Conc. 33.1 g/dL (32.0-36.0); Mean Corpuscular Volume 87.3 fL (80.0-100.0); Monocytes # (auto) 1.7 10 ^3/uL (0-1.3); Monocytes % (auto) 9.9 % (0.0-12.0); Neutrophils # (auto) 14.8 10 ^3/uL (1.6-8.6); Neutrophils % (auto) 87.6 % (37.0-80.0); Red Blood Cells 4.94 10^6/uL (4.5-5.90); Red Cell Distribution Width 14.3 % (11.8-14.3); White Blood Cell 16.8 10^3/uL (4.4-10.8)
[2020-11-10] MEDS ORDERED: SODIUM CHLORIDE 0.9% 1,000 ML IVB ONE (12:15)
[2020-11-10 12:31] LABS: Albumin 3.4 g/dL (3.4-5.0); Calcium 8.7 mg/dL (8.5-10.1); Potassium 3.3 mmol/L (3.5-5.1)
[2020-11-10 12:34] LABS: BUN/Creatinine Ratio 14.6; Bilirubin, Total 1.3 mg/dL (0.2-1.0); Total Protein 7.1 g/dL (6.4-8.2)
[2020-11-10 13:02] LABS: Magnesium 1.9 mg/dL (1.6-2.6)
[2020-11-10 13:16] LABS: Amphetamine Screen, Urine POSITIVE (NEGATIVE); Barbiturate Scree,Urine NEGATIVE (NEGATIVE); Benzodiazephine Screen, Urine NEGATIVE (NEGATIVE); Cannabinoid Screen, Urine NEGATIVE (NEGATIVE); Cocaine Screen, Urine NEGATIVE (NEGATIVE); Phencyclidine Screen, Urine NEGATIVE (NEGATIVE)
[2020-11-10 13:20] LABS: Urine Bacteria FEW /hpf (None Seen); Urine Blood 1+ /uL (Negative); Urine Hyaline Cast MOD /lpf (0 - 2); Urine Mucus FEW (None Seen); Urine Specific Gravity 1.032 (1.001-1.035); Urine WBC 4 /hpf (0 - 3)
[2020-11-10 13:24] LABS: Opiate Scree,Urine POSITIVE (NEGATIVE)
[2020-11-10 13:36] LABS: INR 1.15 (0.9-1.15); Partial Thromboplastin Time 24.9 sec (23.0-31.2)
[2020-11-10] MEDS ORDERED: LORazepam 2MG/ML-1ML VIAL ONE (13:52)
[2020-11-10] MEDS ORDERED: LORazepam 2MG/ML-1ML VIAL IV ONE ×2 (14:00→17:00)
[2020-11-10 14:20] LABS: Lactic Acid w/Reflex 3.9 mmol/L (0.4-2.0)
[2020-11-10] MEDS ORDERED: PANTOPRAZOLE 40 MG/10 ML VIAL INJ IV ONE ×2 (16:46→17:00)
[2020-11-10] MEDS ORDERED: HALOPERIDOL LACTATE 5 MG/ML INJ VIAL IM ONE (17:00)
[2020-11-10] MEDS ORDERED: HYDROcodone-ACET 5/325MG TAB PO PRN (17:00)
[2020-11-10] MEDS ORDERED: ONDANSETRON HCL 4 MG/2 ML VIAL IV PRN (17:00)
[2020-11-10] MEDS ORDERED: DEXTROSE (50%) 50ML SYRG IV PRN (17:00)
[2020-11-10] MEDS ORDERED: MORPHINE SULF INJ 2 MG/ML SYRINGE 1ML IV PRN ×2 (17:00)
[2020-11-10] MEDS: ACCU-CHEK COMFORT CURVE STRIP VI SCH ×2 (18:29→21:49)
[2020-11-10] MEDS: InsuLIN REG 1unit/0.01ml Soln (100units/ml) SC SCH ×2 (18:46→21:49)
[2020-11-10] MEDS: PIPERACILLIN-TAZOB 3.375GM 100 ML IV SCH (18:50)
[2020-11-10] MEDS: SOD CHL 0.9%/ KCL 20MEQ 1,000 ML IV SCH (18:50)
[2020-11-11] MEDS: LORazepam 2MG/ML-1ML VIAL IV PRN ×3 (00:11→18:04)
[2020-11-11] MEDS: PIPERACILLIN-TAZOB 3.375GM 100 ML IV SCH ×4 (00:37→18:04)
[2020-11-11] MEDS: ACETAMINOPHEN 500 MG TAB PO PRN (01:05)
[2020-11-11] MEDS: SOD CHL 0.9%/ KCL 20MEQ 1,000 ML IV SCH ×2 (03:25→08:50)
[2020-11-11] MEDS ORDERED: ALBUMIN 5% 250 ML IV ONE (04:30)
[2020-11-11] MEDS: InsuLIN REG 1unit/0.01ml Soln (100units/ml) SC SCH ×4 (07:00→22:00)
[2020-11-11] MEDS: ACCU-CHEK COMFORT CURVE STRIP VI SCH ×4 (07:24→22:16)
[2020-11-11] MEDS: PANTOPRAZOLE 40 MG/10 ML VIAL INJ IV SCH (08:50)
[2020-11-11 09:00] VITALS: BP 96/47
[2020-11-11 10:08] LABS: Basophils # (auto) 0.1 10 ^3/uL (0-0.2); Basophils % (auto) 0.7 % (0.0-2.0); Eosinophils # (auto) 0.2 10 ^3/uL (0-0.8); Eosinophils % (auto) 2.1 % (0.0-7.0); Hematocrit 31.5 % (41.0-53.0); Hemoglobin 10.8 g/dL (13.5-17.5); Lymphocytes # (auto) 0.5 10 ^3/uL (0.4-5.4); Lymphocytes % (auto) 5.4 % (10.0-50.0); Mean Corpuscular Hemoglobin 29.6 pg (28.0-32.0); Mean Corpuscular Hgb Conc. 34.4 g/dL (32.0-36.0); Mean Corpuscular Volume 86.3 fL (80.0-100.0); Monocytes # (auto) 1.1 10 ^3/uL (0-1.3); Monocytes % (auto) 11.8 % (0.0-12.0); Neutrophils # (auto) 7.4 10 ^3/uL (1.6-8.6); Red Blood Cells 3.65 10^6/uL (4.5-5.90); Red Cell Distribution Width 13.7 % (11.8-14.3); White Blood Cell 9.3 10^3/uL (4.4-10.8)
[2020-11-11 10:16] LABS: Albumin 2.9 g/dL (3.4-5.0); Calcium 7.6 mg/dL (8.5-10.1)
[2020-11-11 10:19] LABS: BUN/Creatinine Ratio 14.9; Bilirubin, Total 1.4 mg/dL (0.2-1.0); Total Protein 5.7 g/dL (6.4-8.2)
[2020-11-11 13:00] VITALS: BP 146/76
[2020-11-11] MEDS: D5W/ SOD CHL 0.9%/KCL 20MEQ 1,000 ML IV SCH (13:00)
[2020-11-11 17:00] VITALS: BP 126/75
[2020-11-11 22:00] VITALS: BP 148/91
[2020-11-12] MEDS: PIPERACILLIN-TAZOB 3.375GM 100 ML IV SCH ×5 (01:33→23:49)
[2020-11-12 05:00] VITALS: BP 123/76
[2020-11-12] MEDS: D5W/ SOD CHL 0.9%/KCL 20MEQ 1,000 ML IV SCH ×4 (05:31→23:45)
[2020-11-12] MEDS: ACCU-CHEK COMFORT CURVE STRIP VI SCH ×2 (06:17→12:25)
[2020-11-12] MEDS: InsuLIN REG 1unit/0.01ml Soln (100units/ml) SC SCH ×2 (06:17→11:30)
[2020-11-12 09:08] LABS: Basophils # (auto) 0.1 10 ^3/uL (0-0.2); Basophils % (auto) 1.4 % (0.0-2.0); Eosinophils # (auto) 0.4 10 ^3/uL (0-0.8); Eosinophils % (auto) 6.3 % (0.0-7.0); Hematocrit 31.8 % (41.0-53.0); Lymphocytes # (auto) 0.4 10 ^3/uL (0.4-5.4); Lymphocytes % (auto) 6.2 % (10.0-50.0); Mean Corpuscular Hemoglobin 29.6 pg (28.0-32.0); Mean Corpuscular Hgb Conc. 34.5 g/dL (32.0-36.0); Mean Corpuscular Volume 85.7 fL (80.0-100.0); Monocytes # (auto) 0.8 10 ^3/uL (0-1.3); Monocytes % (auto) 11.9 % (0.0-12.0); Neutrophils # (auto) 5.3 10 ^3/uL (1.6-8.6); Neutrophils % (auto) 74.2 % (37.0-80.0); Red Blood Cells 3.71 10^6/uL (4.5-5.90); White Blood Cell 7.1 10^3/uL (4.4-10.8)
[2020-11-12 09:36] LABS: Albumin 2.7 g/dL (3.4-5.0); Calcium 7.7 mg/dL (8.5-10.1); Magnesium 2.1 mg/dL (1.6-2.6)
[2020-11-12 09:40] LABS: BUN/Creatinine Ratio 15.4; Bilirubin, Total 1.1 mg/dL (0.2-1.0)
[2020-11-12 09:49] LABS: Potassium 2.9 mmol/L (3.5-5.1)
[2020-11-12] MEDS: PANTOPRAZOLE 40 MG/10 ML VIAL INJ IV SCH (10:35)
[2020-11-12] MEDS ORDERED: POTASSIUM EFFERVESENT TAB 25 MEQ GT ONE (10:45)
[2020-11-12 12:00] VITALS: BP 153/81
[2020-11-12 13:00] VITALS: BP 124/71
[2020-11-12] MEDS: LORazepam 2MG/ML-1ML VIAL IV PRN (16:36)
[2020-11-12 17:00] VITALS: BP 151/70
[2020-11-12] MEDS ORDERED: PRE5T PO (17:01)
[2020-11-12] MEDS ORDERED: POM PO ×2 (17:12→17:13)
[2020-11-12] MEDS: ACETAMINOPHEN 500 MG TAB PO PRN (20:11)
[2020-11-13 05:00] VITALS: BP 116/60
[2020-11-13] MEDS: PIPERACILLIN-TAZOB 3.375GM 100 ML IV SCH ×3 (05:45→19:02)
[2020-11-13] MEDS: LORazepam 2MG/ML-1ML VIAL IV PRN ×2 (05:45→11:59)
[2020-11-13 09:00] VITALS: BP 103/57
[2020-11-13] MEDS: PANTOPRAZOLE 40 MG/10 ML VIAL INJ IV SCH (10:15)
[2020-11-13 13:00] VITALS: BP 154/72
[2020-11-13] MEDS: NITROGLYCERIN 0.4 MG SL TAB SL PRN ×2 (15:58→16:04)
[2020-11-13] MEDS ORDERED: ENOXAPARIN SOD 40 MG/0.4 ML SYRINGE SC ONE (16:45)
[2020-11-13 17:00] VITALS: BP 126/81
[2020-11-13 20:00] VITALS: BP 132/79
[2020-11-13] MEDS: HYDROcodone-ACET 7.5/325MG TAB PO PRN (20:45)
[2020-11-13 22:00] VITALS: BP 132/79
[2020-11-13] MEDS ORDERED: TEMAZEPAM 15 MG CAP PO ONE (22:30)
[2020-11-14] MEDS: PIPERACILLIN-TAZOB 3.375GM 100 ML IV SCH ×4 (00:36→17:47)
[2020-11-14 05:00] VITALS: BP 111/73
[2020-11-14 06:30] LABS: Basophils # (auto) 0 10 ^3/uL (0-0.2); Basophils % (auto) 0.6 % (0.0-2.0); Eosinophils # (auto) 0.5 10 ^3/uL (0-0.8); Eosinophils % (auto) 8.3 % (0.0-7.0); Hematocrit 33.2 % (41.0-53.0); Hemoglobin 11.6 g/dL (13.5-17.5); Lymphocytes # (auto) 0.6 10 ^3/uL (0.4-5.4); Lymphocytes % (auto) 10.2 % (10.0-50.0); Mean Corpuscular Hgb Conc. 34.9 g/dL (32.0-36.0); Mean Corpuscular Volume 86.1 fL (80.0-100.0); Monocytes % (auto) 16.4 % (0.0-12.0); Neutrophils % (auto) 64.5 % (37.0-80.0); Red Blood Cells 3.85 10^6/uL (4.5-5.90); White Blood Cell 6.2 10^3/uL (4.4-10.8)
[2020-11-14 06:49] LABS: BUN/Creatinine Ratio 9.7; Calcium 7.9 mg/dL (8.5-10.1); Potassium 3.9 mmol/L (3.5-5.1)
[2020-11-14] MEDS: ASPirin 81 mg TAB PO SCH (09:52)
[2020-11-14] MEDS: ENOXAPARIN SOD 40 MG/0.4 ML SYRINGE SC SCH (09:52)
[2020-11-14] MEDS: PANTOPRAZOLE 40 MG/10 ML VIAL INJ IV SCH (09:52)
[2020-11-14] MEDS: HYDROcodone-ACET 7.5/325MG TAB PO PRN ×2 (11:10→17:48)
[2020-11-14 11:55] VITALS: BP 135/88
[2020-11-14] MEDS ORDERED: CITALOPRAM HYDROBR 20 MG TAB PO ONE (13:45)
[2020-11-14] MEDS: NITROGLYCERIN 0.4 MG SL TAB SL PRN (16:12)
[2020-11-14 16:53] VITALS: BP 140/86
[2020-11-14 20:00] VITALS: BP 113/64
[2020-11-14] MEDS ORDERED: TAMSULOSIN HYDROCHLORIDE 0.4 MG CAP PO SCH (23:15)
[2020-11-15] MEDS: HYDROcodone-ACET 7.5/325MG TAB PO PRN ×2 (00:15→06:32)
[2020-11-15] MEDS: PIPERACILLIN-TAZOB 3.375GM 100 ML IV SCH ×2 (00:15→05:33)
[2020-11-15 04:00] VITALS: BP 127/68
[2020-11-15] MEDS: PANTOPRAZOLE 40 MG/10 ML VIAL INJ IV SCH (09:50)
[2020-11-15] MEDS: ASPirin 81 mg TAB PO SCH (09:51)
[2020-11-15] MEDS: ENOXAPARIN SOD 40 MG/0.4 ML SYRINGE SC SCH (09:51)
[2020-11-15] MEDS ORDERED: CITALOPRAM HYDROBR 20 MG TAB PO SCH (10:00)
[2020-11-15] MEDS ORDERED: levoFLOXacin 500MG 100 ML IV SCH (10:00)
[2020-11-15 10:45] LABS: Folate (Folic Acid) 11.14 ng/mL (5.38-24)
[2020-11-15] MEDS ORDERED: RANOLAZINE ER 500 MG TAB PO SCH (22:00)
== END 2020-11-15 15:17 | disposition left against medical advice (07) | DRG 177 ==
LOC: ER 10:46 → EDBD 10:46 → TELE 16:51 → TELE-WESTW 11-11 08:20 → WEST WING 11-14 08:39 → TELE-WESTW 11-14 08:40
PROVIDERS: ADMIT Nurse Practitioner Acute Care; ATTEND Internal Medicine
DX: J69.0 Pneumonitis due to inhalation of food and vomit (principal); G92 Toxic encephalopathy; K92.0 Hematemesis; R65.10 Systemic inflammatory response syndrome (SIRS) of non-infectious origin without acute organ dysfunction; Z20.822 Contact with and (suspected) exposure to COVID-19; C61 Malignant neoplasm of prostate; E11.9 Type 2 diabetes mellitus without complications; I10 Essential (primary) hypertension; Z53.29 Procedure and treatment not carried out because of patient's decision for other reasons; E78.5 Hyperlipidemia, unspecified; E87.6 Hypokalemia; F15.90 Other stimulant use, unspecified, uncomplicated; F41.9 Anxiety disorder, unspecified; F17.200 Nicotine dependence, unspecified, uncomplicated; F32.9 Major depressive disorder, single episode, unspecified; I25.10 Atherosclerotic heart disease of native coronary artery without angina pectoris; Z79.02 Long term (current) use of antithrombotics/antiplatelets; Z79.82 Long term (current) use of aspirin; Z79.84 Long term (current) use of oral hypoglycemic drugs; Z79.899 Other long term (current) drug therapy; Z82.0 Family history of epilepsy and other diseases of the nervous system; Z83.3 Family history of diabetes mellitus; Z85.038 Personal history of other malignant neoplasm of large intestine; Z85.46 Personal history of malignant neoplasm of prostate; Z90.49 Acquired absence of other specified parts of digestive tract; Z91.19 Patient's noncompliance with other medical treatment and regimen; Z95.5 Presence of coronary angioplasty implant and graft; Z86.73 Personal history of transient ischemic attack (TIA), and cerebral infarction without residual deficits
CPT/HCPCS: 36415; 70450; 71045; 71046; 74176; 80048; 80053; 80307; 80320; 81001; 82140; 82607; 82746; 82962; 83036; 83605; 83690; 83735; 84132; 84443; 85025; 85610; 85730; 87040; 87426; 93005; 93306; 93886; 96361; 96374; 96375; 96376; 97116; 97530; C9113; G0378; J1956; J2405; J2543

== ENCOUNTER 2020-11-24 07:02 | Emergency (ER) | payer OTHER, MEDICAID ==
[~2020-11-24] VITALS: Ht 160 cm; Wt 83.9 kg
[~2020-11-24 07:02] MED LIST changes: +POM PO
[2020-11-24 07:42] LABS: Basophils # (auto) 0.1 10 ^3/uL (0-0.2); Basophils % (auto) 1.2 % (0.0-2.0); Eosinophils # (auto) 0.1 10 ^3/uL (0-0.8); Eosinophils % (auto) 1.6 % (0.0-7.0); Hematocrit 37.2 % (41.0-53.0); Hemoglobin 12.9 g/dL (13.5-17.5); Lymphocytes # (auto) 0.6 10 ^3/uL (0.4-5.4); Lymphocytes % (auto) 9.4 % (10.0-50.0); Mean Corpuscular Hemoglobin 29.5 pg (28.0-32.0); Mean Corpuscular Hgb Conc. 34.6 g/dL (32.0-36.0); Mean Corpuscular Volume 85.1 fL (80.0-100.0); Monocytes # (auto) 0.9 10 ^3/uL (0-1.3); Neutrophils # (auto) 5.1 10 ^3/uL (1.6-8.6); Neutrophils % (auto) 74.8 % (37.0-80.0); Nucleated Red Blood Cells % 0.1 %; Red Blood Cells 4.37 10^6/uL (4.5-5.90); White Blood Cell 6.9 10^3/uL (4.4-10.8)
[2020-11-24 07:57] LABS: Albumin 3.4 g/dL (3.4-5.0); Calcium 8.7 mg/dL (8.5-10.1); Potassium 3.7 mmol/L (3.5-5.1)
[2020-11-24] MEDS ORDERED: ONDANSETRON HCL 4 MG/2 ML VIAL IV ONE (08:00)
[2020-11-24] MEDS ORDERED: MORPHINE SULFATE 4 MG/ML SYR/VIAL IV ONE (08:00)
[2020-11-24] MEDS ORDERED: SODIUM CHLORIDE 0.9% 1,000 ML IV ONE ×2 (08:00)
[2020-11-24 08:02] LABS: BUN/Creatinine Ratio 14.8; Bilirubin, Total 0.5 mg/dL (0.2-1.0); Total Protein 7.2 g/dL (6.4-8.2)
[2020-11-24] MEDS ORDERED: cloNIDine HCL 0.1 MG TAB PO ONE (08:15)
[2020-11-24 09:32] LABS: Urine Bacteria NONE SEEN /hpf (None Seen); Urine Blood Negative /uL (Negative); Urine Mucus FEW (None Seen); Urine Specific Gravity 1.024 (1.001-1.035); Urine WBC <1 /hpf (0 - 3)
[2020-11-24 10:14] VITALS: BP 141/73
== END 2020-11-24 10:50 | disposition home or self-care (01) ==
LOC: EDBD 07:02 → ER 07:02
DX: R10.9 Unspecified abdominal pain (principal); I10 Essential (primary) hypertension; I25.2 Old myocardial infarction; I25.10 Atherosclerotic heart disease of native coronary artery without angina pectoris; F17.210 Nicotine dependence, cigarettes, uncomplicated; Z79.899 Other long term (current) drug therapy
CPT/HCPCS: 36415; 74176; 80053; 81001; 85025; 93005; 96361; 96374; 96375; 99285; J2270; J2405; J7030

== ENCOUNTER 2021-07-08 01:30 | Inpatient (IN) | payer OTHER, MEDICAID ==
[~2021-07-08] VITALS: Ht 160 cm; Wt 69.4 kg
[2021-07-08] MEDS ORDERED: ASPirin 325 MG TAB PO ONE (02:00)
[2021-07-08] MEDS ORDERED: NITROGLYCERIN 0.4 MG SL TAB SL ONE ×2 (02:00→02:30)
[2021-07-08 02:25] LABS: Basophils # (auto) 0.1 10 ^3/uL (0-0.2); Eosinophils # (auto) 0.3 10 ^3/uL (0-0.8); Eosinophils % (auto) 3.9 % (0.0-7.0); Hemoglobin 12.5 g/dL (13.5-17.5); Lymphocytes # (auto) 0.8 10 ^3/uL (0.4-5.4); Mean Corpuscular Hemoglobin 27.7 pg (28.0-32.0); Mean Corpuscular Hgb Conc. 33.7 g/dL (32.0-36.0); Monocytes # (auto) 0.9 10 ^3/uL (0-1.3); Monocytes % (auto) 13.5 % (0.0-12.0); Neutrophils # (auto) 4.8 10 ^3/uL (1.6-8.6); Neutrophils % (auto) 69.6 % (37.0-80.0); Nucleated Red Blood Cells % 0.1 %; Red Blood Cells 4.51 10^6/uL (4.5-5.90); Red Cell Distribution Width 15.3 % (11.8-14.3); White Blood Cell 6.9 10^3/uL (4.4-10.8)
[2021-07-08 02:27] LABS: Albumin 3.1 g/dL (3.4-5.0); BUN/Creatinine Ratio 12.9; Calcium 8.3 mg/dL (8.5-10.1); Potassium 3.9 mmol/L (3.5-5.1)
[2021-07-08 02:35] LABS: Bilirubin, Total 0.2 mg/dL (0.2-1.0)
[2021-07-08] MEDS ORDERED: MORPHINE SULFATE 4 MG/ML SYR/VIAL IV PRN (04:15)
[2021-07-08] MEDS ORDERED: ACETAMINOPHEN 325 MG TAB PO PRN (04:15)
[2021-07-08] MEDS ORDERED: MORPHINE SULFATE INJECTION 2 MG/ML SYRG IV PRN (04:15)
[2021-07-08] MEDS ORDERED: ATORVASTATIN 20 MG TAB PO ONE (04:15)
[2021-07-08] MEDS ORDERED: SODIUM CHLORIDE 0.9% 1,000 ML IV SCH (04:15)
[2021-07-08] MEDS ORDERED: CARVEDILOL 3.125 MG TAB PO ONE (04:15)
[2021-07-08] MEDS ORDERED: DEXTROSE (50%) 50ML SYRG IV PRN (04:15)
[2021-07-08] MEDS ORDERED: NITROGLYCERIN 0.4 MG SL TAB SL PRN ×2 (04:15)
[2021-07-08 05:10] LABS: Cholesterol 153 mg/dL (< 200)
[2021-07-08 05:12] LABS: HDL Cholesterol 52 mg/dL (40-59); LDL Cholesterol 88 mg/dL (< 100); Triglycerides 99 mg/dL (< 150)
[2021-07-08 06:14] LABS: Urine Bacteria NONE SEEN /hpf (None Seen); Urine Blood Negative /uL (Negative); Urine Mucus FEW (None Seen); Urine Specific Gravity 1.029 (1.001-1.035); Urine WBC None Seen /hpf (0 - 3)
[2021-07-08 06:53] LABS: Basophils # (auto) 0.1 10 ^3/uL (0-0.2); Basophils % (auto) 1.2 % (0.0-2.0); Eosinophils # (auto) 0.3 10 ^3/uL (0-0.8); Eosinophils % (auto) 4.5 % (0.0-7.0); Hematocrit 33.4 % (41.0-53.0); Hemoglobin 11.6 g/dL (13.5-17.5); Lymphocytes # (auto) 0.8 10 ^3/uL (0.4-5.4); Lymphocytes % (auto) 14.4 % (10.0-50.0); Mean Corpuscular Hemoglobin 28.2 pg (28.0-32.0); Mean Corpuscular Hgb Conc. 34.8 g/dL (32.0-36.0); Monocytes # (auto) 0.7 10 ^3/uL (0-1.3); Monocytes % (auto) 12.7 % (0.0-12.0); Neutrophils # (auto) 3.9 10 ^3/uL (1.6-8.6); Neutrophils % (auto) 67.2 % (37.0-80.0); Nucleated Red Blood Cells % 0.2 %; Red Blood Cells 4.13 10^6/uL (4.5-5.90); Red Cell Distribution Width 15.8 % (11.8-14.3); White Blood Cell 5.8 10^3/uL (4.4-10.8)
[2021-07-08] MEDS: InsuLIN REG 1unit/0.01ml Soln (100units/ml) SC SCH ×2 (07:00→11:30)
[2021-07-08 07:18] LABS: Calcium 8.4 mg/dL (8.5-10.1)
[2021-07-08] MEDS: ACCU-CHEK COMFORT CURVE STRIP VI SCH ×2 (07:19→11:41)
[2021-07-08 08:32] LABS: BUN/Creatinine Ratio 13.9
[2021-07-08 09:00] VITALS: BP 149/62
[2021-07-08] MEDS ORDERED: LISINOPRIL 5 MG TAB PO SCH (10:00)
[2021-07-08] MEDS ORDERED: ENOXAPARIN SOD 40 MG/0.4 ML SYRINGE SC SCH (10:00)
[2021-07-08] MEDS ORDERED: PANTOPRAZOLE 40 MG TAB PO SCH (10:00)
[2021-07-08] MEDS ORDERED: CLOPIDOGREL BISULFATE 75 MG TAB PO SCH (10:00)
[2021-07-08] MEDS ORDERED: DOCUSATE SOD 100 MG CAP PO SCH (10:00)
[2021-07-08] MEDS ORDERED: CARVEDILOL 3.125 MG TAB PO SCH (10:00)
[2021-07-08] MEDS ORDERED: ASPirin 81 mg TAB PO SCH (10:00)
[2021-07-08 13:00] VITALS: BP 148/84
[2021-07-08 16:49] LABS: Alcohol, Urine < 3.0 mg/dL (0-10); Amphetamine Screen, Urine POSITIVE (NEGATIVE); Barbiturate Scree,Urine NEGATIVE (NEGATIVE); Benzodiazephine Screen, Urine NEGATIVE (NEGATIVE); Cocaine Screen, Urine NEGATIVE (NEGATIVE); Opiate Scree,Urine POSITIVE (NEGATIVE); Phencyclidine Screen, Urine NEGATIVE (NEGATIVE)
[2021-07-08 16:57] LABS: Cannabinoid Screen, Urine POSITIVE (NEGATIVE)
[2021-07-08 17:00] VITALS: BP 150/89
[2021-07-08] MEDS ORDERED: TAMSULOSIN HYDROCHLORIDE 0.4 MG CAP PO SCH (18:00)
[2021-07-08] MEDS ORDERED: CARVEDILOL 12.5 MG TAB PO SCH (22:00)
[2021-07-08] MEDS ORDERED: MELATONIN 10 MG PO SCH (22:00)
[2021-07-08] MEDS ORDERED: ATORVASTATIN 20 MG TAB PO SCH (22:00)
[2021-07-09] MEDS ORDERED: LISINOPRIL 10 MG TAB PO SCH (10:00)
== END 2021-07-08 18:05 | disposition left against medical advice (07) | DRG 311 ==
LOC: ER 01:34 → TELE 04:13 → TELE-WESTW 08:26
PROVIDERS: ADMIT Internal Medicine; ATTEND Internal Medicine
DX: I24.9 Acute ischemic heart disease, unspecified (principal); I50.23 Acute on chronic systolic (congestive) heart failure; I25.10 Atherosclerotic heart disease of native coronary artery without angina pectoris; F17.210 Nicotine dependence, cigarettes, uncomplicated; K21.9 Gastro-esophageal reflux disease without esophagitis; F19.10 Other psychoactive substance abuse, uncomplicated; N40.0 Benign prostatic hyperplasia without lower urinary tract symptoms; I11.0 Hypertensive heart disease with heart failure; E11.9 Type 2 diabetes mellitus without complications; Z20.822 Contact with and (suspected) exposure to COVID-19; Z53.29 Procedure and treatment not carried out because of patient's decision for other reasons; E78.5 Hyperlipidemia, unspecified; Z85.46 Personal history of malignant neoplasm of prostate; Z91.19 Patient's noncompliance with other medical treatment and regimen; Z95.5 Presence of coronary angioplasty implant and graft; I25.2 Old myocardial infarction; Z79.84 Long term (current) use of oral hypoglycemic drugs; Z82.0 Family history of epilepsy and other diseases of the nervous system; Z82.49 Family history of ischemic heart disease and other diseases of the circulatory system; Z83.3 Family history of diabetes mellitus; Z86.73 Personal history of transient ischemic attack (TIA), and cerebral infarction without residual deficits; Z90.49 Acquired absence of other specified parts of digestive tract
CPT/HCPCS: 36415; 71045; 72100; 80048; 80053; 80061; 80307; 81001; 82962; 83036; 83880; 84484; 85025; 93005; 93306; 96360; G0378

== ENCOUNTER 2021-11-12 16:12 | Emergency (ER) | payer OTHER, MEDICAID ==
[2021-11-12 16:35] VITALS: BP 136/80
[2021-11-12 17:58] LABS: Basophils # (auto) 0.1 10 ^3/uL (0-0.2); Basophils % (auto) 0.6 % (0.0-2.0); Eosinophils # (auto) 0 10 ^3/uL (0-0.8); Eosinophils % (auto) 0.2 % (0.0-7.0); Hematocrit 33.3 % (41.0-53.0); Hemoglobin 10.4 g/dL (13.5-17.5); Lymphocytes # (auto) 0.6 10 ^3/uL (0.4-5.4); Lymphocytes % (auto) 5.1 % (10.0-50.0); Mean Corpuscular Hemoglobin 24.4 pg (28.0-32.0); Mean Corpuscular Hgb Conc. 31.4 g/dL (32.0-36.0); Mean Corpuscular Volume 77.9 fL (80.0-100.0); Monocytes # (auto) 1.8 10 ^3/uL (0-1.3); Neutrophils # (auto) 8.7 10 ^3/uL (1.6-8.6); Neutrophils % (auto) 78.1 % (37.0-80.0); Red Blood Cells 4.27 10^6/uL (4.5-5.90); Red Cell Distribution Width 17.2 % (11.8-14.3); White Blood Cell 11.2 10^3/uL (4.4-10.8)
[2021-11-12 18:12] LABS: Albumin 2.9 g/dL (3.4-5.0); Calcium 8.2 mg/dL (8.5-10.1); Potassium 4.2 mmol/L (3.5-5.1)
[2021-11-12 18:14] LABS: BUN/Creatinine Ratio 13.8
[2021-11-12 18:16] LABS: Bilirubin, Total 0.6 mg/dL (0.2-1.0); Total Protein 7.3 g/dL (6.4-8.2)
== END 2021-11-13 05:43 | disposition left against medical advice (07) ==
LOC: ER 16:12
DX: R53.1 Weakness (principal); M79.10 Myalgia, unspecified site; R07.89 Other chest pain; Z53.21 Procedure and treatment not carried out due to patient leaving prior to being seen by health care provider
CPT/HCPCS: 36415; 71045; 80053; 85025

== ENCOUNTER 2021-12-18 19:15 | Inpatient (IN) | payer OTHER, MEDICAID ==
[~2021-12-18] VITALS: Ht 160 cm; Wt 63.5 kg
[2021-12-18] MEDS ORDERED: SODIUM CHLORIDE 0.9% 500 ML IV ONE (19:30)
[2021-12-18 21:48] LABS: Basophils # (auto) 0 10 ^3/uL (0-0.2); Eosinophils # (auto) 0 10 ^3/uL (0-0.8); Eosinophils % (auto) 0.5 % (0.0-7.0); Hematocrit 31.6 % (41.0-53.0); Lymphocytes # (auto) 0.6 10 ^3/uL (0.4-5.4); Mean Corpuscular Hemoglobin 24.3 pg (28.0-32.0); Monocytes # (auto) 1.4 10 ^3/uL (0-1.3)
[2021-12-18 21:50] LABS: Basophils % (auto) 0.4 % (0.0-2.0); Lymphocytes % (auto) 7.1 % (10.0-50.0); Mean Corpuscular Hgb Conc. 31.6 g/dL (32.0-36.0); Mean Corpuscular Volume 76.7 fL (80.0-100.0); Neutrophils # (auto) 6.9 10 ^3/uL (1.6-8.6); Red Blood Cells 4.11 10^6/uL (4.5-5.90); Red Cell Distribution Width 18.6 % (11.8-14.3); White Blood Cell 9.1 10^3/uL (4.4-10.8)
[2021-12-18 22:39] LABS: INR 1.29 (0.9-1.15); Partial Thromboplastin Time 34.3 sec (24.6-33.4)
[2021-12-18 22:50] LABS: Albumin 2.5 g/dL (3.4-5.0); Anion Gap 8 (5-15); Calcium 8.1 mg/dL (8.5-10.1); Carbon Dioxide 27 mmol/L (21-32); Chloride 99 mmol/L (98-107); Glucose 135 mg/dL (74-106); Potassium 3.8 mmol/L (3.5-5.1); Sodium 134 mmol/L (136-145)
[2021-12-18 22:55] LABS: Alanine Aminotransferase 10 U/L (16-61); Alkaline Phosphatase 507 U/L (45-117); Aspartate Aminotransferase 55 U/L (15-37); BUN/Creatinine Ratio 10.3; Bilirubin, Total 0.8 mg/dL (0.2-1.0); Blood Alcohol < 3.0 mg/dL (0-5); Blood Urea Nitrogen 8 mg/dL (7-18); GFR African American 126 mL/min; GFR Non-African American 104 mL/min; Total Protein 6.6 g/dL (6.4-8.2)
[2021-12-18] MEDS ORDERED: ONDANSETRON HCL 4 MG/2 ML VIAL IV PRN (23:45)
[2021-12-18] MEDS ORDERED: DEXTROSE (50%) 50ML SYRG IV PRN (23:45)
[2021-12-18] MEDS ORDERED: TEMAZEPAM 15 MG CAP PO PRN (23:45)
[2021-12-19] VITALS (8 sets, daily range): BP systolic 97–131; BP diastolic 53–73
[2021-12-19] MEDS: InsuLIN REG 1unit/0.01ml Soln (100units/ml) SC SCH ×4 (01:30→17:57)
[2021-12-19] MEDS: ACCU-CHEK COMFORT CURVE STRIP VI SCH ×4 (01:30→17:57)
[2021-12-19 08:06] LABS: Albumin 2.4 g/dL (3.4-5.0); Calcium 8.4 mg/dL (8.5-10.1); Potassium 4.1 mmol/L (3.5-5.1)
[2021-12-19 08:09] LABS: BUN/Creatinine Ratio 13.6; Bilirubin, Total 0.5 mg/dL (0.2-1.0); Total Protein 6.4 g/dL (6.4-8.2)
[2021-12-19 09:57] LABS: Basophils # (auto) 0.1 10 ^3/uL (0-0.2); Basophils % (auto) 0.9 % (0.0-2.0); Eosinophils # (auto) 0.1 10 ^3/uL (0-0.8); Hematocrit 31.6 % (41.0-53.0); Lymphocytes # (auto) 0.6 10 ^3/uL (0.4-5.4); Mean Corpuscular Hemoglobin 24.1 pg (28.0-32.0); Mean Corpuscular Hgb Conc. 31.5 g/dL (32.0-36.0); Mean Corpuscular Volume 76.5 fL (80.0-100.0); Monocytes # (auto) 1.4 10 ^3/uL (0-1.3); Monocytes % (auto) 15.2 % (0.0-12.0); Neutrophils # (auto) 7.1 10 ^3/uL (1.6-8.6); Neutrophils % (auto) 76.9 % (37.0-80.0); Nucleated Red Blood Cells % 0.1 %; Red Blood Cells 4.14 10^6/uL (4.5-5.90); White Blood Cell 9.3 10^3/uL (4.4-10.8)
[2021-12-19] MEDS ORDERED: CLOPIDOGREL BISULFATE 75 MG TAB PO SCH (10:00)
[2021-12-19] MEDS ORDERED: PANTOPRAZOLE 40 MG TAB PO SCH (10:00)
[2021-12-19] MEDS: METOPROLOL TARTRATE 50 MG TAB PO SCH ×2 (10:46→21:42)
[2021-12-19] MEDS: HYDROcodone-ACET 5/325MG TAB PO PRN (14:44)
[2021-12-20] MEDS: ACCU-CHEK COMFORT CURVE STRIP VI SCH ×2 (00:20→06:00)
[2021-12-20] MEDS: InsuLIN REG 1unit/0.01ml Soln (100units/ml) SC SCH ×2 (00:22→06:00)
[2021-12-20] MEDS: HYDROcodone-ACET 5/325MG TAB PO PRN (04:25)
[2021-12-20 05:00] VITALS: BP 93/51
[2021-12-20 05:26] LABS: Basophils # (auto) 0 10 ^3/uL (0-0.2); Basophils % (auto) 0.5 % (0.0-2.0); Eosinophils # (auto) 0.1 10 ^3/uL (0-0.8); Eosinophils % (auto) 1.6 % (0.0-7.0); Hematocrit 28.6 % (41.0-53.0); Hemoglobin 9.4 g/dL (13.5-17.5); Lymphocytes # (auto) 0.6 10 ^3/uL (0.4-5.4); Mean Corpuscular Hemoglobin 24.7 pg (28.0-32.0); Mean Corpuscular Hgb Conc. 32.9 g/dL (32.0-36.0); Mean Corpuscular Volume 75.1 fL (80.0-100.0); Monocytes # (auto) 1.1 10 ^3/uL (0-1.3); Monocytes % (auto) 13.8 % (0.0-12.0); Neutrophils # (auto) 6.3 10 ^3/uL (1.6-8.6); Neutrophils % (auto) 77.1 % (37.0-80.0); Red Blood Cells 3.81 10^6/uL (4.5-5.90); Red Cell Distribution Width 18.4 % (11.8-14.3); White Blood Cell 8.2 10^3/uL (4.4-10.8)
[2021-12-20 05:31] LABS: Albumin 2.3 g/dL (3.4-5.0); Potassium 4.5 mmol/L (3.5-5.1)
[2021-12-20 05:37] LABS: Bilirubin, Total 0.4 mg/dL (0.2-1.0); Magnesium 1.9 mg/dL (1.6-2.6); Phosphorus 3.4 mg/dL (2.5-4.90); Total Protein 6.1 g/dL (6.4-8.2)
== END 2021-12-20 07:29 | disposition left against medical advice (07) | DRG 948 ==
LOC: EDBD 19:15 → ER 19:18 → OVERFLOW 23:46 → WEST WING 12-19 01:24
PROVIDERS: ADMIT Nurse Practitioner; ATTEND Internal Medicine
DX: R53.1 Weakness (principal); D68.9 Coagulation defect, unspecified; E11.9 Type 2 diabetes mellitus without complications; R74.01 Elevation of levels of liver transaminase levels; Z20.822 Contact with and (suspected) exposure to COVID-19; Z53.29 Procedure and treatment not carried out because of patient's decision for other reasons; F17.210 Nicotine dependence, cigarettes, uncomplicated; I10 Essential (primary) hypertension; I25.10 Atherosclerotic heart disease of native coronary artery without angina pectoris; Z82.0 Family history of epilepsy and other diseases of the nervous system; Z83.3 Family history of diabetes mellitus; Z85.048 Personal history of other malignant neoplasm of rectum, rectosigmoid junction, and anus; Z86.73 Personal history of transient ischemic attack (TIA), and cerebral infarction without residual deficits; I25.2 Old myocardial infarction; Z90.49 Acquired absence of other specified parts of digestive tract; Z85.46 Personal history of malignant neoplasm of prostate; K57.30 Diverticulosis of large intestine without perforation or abscess without bleeding
CPT/HCPCS: 36415; 71045; 74176; 80053; 80320; 82140; 82962; 83036; 83735; 84100; 84439; 84443; 84484; 85025; 85610; 85730; 93005; 96360; G0378; J1815

== ENCOUNTER 2022-02-14 13:10 | Inpatient (IN) | payer OTHER, MEDICAID ==
[~2022-02-14] VITALS: Ht 165.1 cm; Wt 60.0 kg
[2022-02-14] MEDS ORDERED: SODIUM CHLORIDE 0.9% 1,000 ML IVB ONE (13:30)
[2022-02-14 13:45] LABS: Basophils # (auto) 0 10 ^3/uL (0-0.2); Eosinophils # (auto) 0 10 ^3/uL (0-0.8); Eosinophils % (auto) 0.3 % (0.0-7.0); Hematocrit 27.7 % (41.0-53.0); Lymphocytes # (auto) 0.5 10 ^3/uL (0.4-5.4); Monocytes # (auto) 0.5 10 ^3/uL (0-1.3)
[2022-02-14 13:46] LABS: Basophils % (auto) 0.6 % (0.0-2.0); Lymphocytes % (auto) 7.5 % (10.0-50.0); Mean Corpuscular Hemoglobin 24.6 pg (28.0-32.0); Mean Corpuscular Hgb Conc. 32.3 g/dL (32.0-36.0); Mean Corpuscular Volume 76.3 fL (80.0-100.0); Monocytes % (auto) 8.3 % (0.0-12.0); Neutrophils # (auto) 5.2 10 ^3/uL (1.6-8.6); Neutrophils % (auto) 83.3 % (37.0-80.0); Red Blood Cells 3.63 10^6/uL (4.5-5.90); White Blood Cell 6.2 10^3/uL (4.4-10.8)
[2022-02-14 14:09] LABS: Amphetamine Screen, Urine NEGATIVE (NEGATIVE); Barbiturate Scree,Urine NEGATIVE (NEGATIVE); Benzodiazephine Screen, Urine NEGATIVE (NEGATIVE); Cannabinoid Screen, Urine NEGATIVE (NEGATIVE); Cocaine Screen, Urine NEGATIVE (NEGATIVE); Opiate Scree,Urine NEGATIVE (NEGATIVE); Phencyclidine Screen, Urine NEGATIVE (NEGATIVE)
[2022-02-14] MEDS ORDERED: LORazepam 2MG/ML-1ML VIAL IV ONE ×3 (14:30→20:45)
[2022-02-14 14:31] LABS: Anion Gap 13 (5-15); Blood Urea Nitrogen 8 mg/dL (7-18); Carbon Dioxide 19 mmol/L (21-32); Chloride 106 mmol/L (98-107); Glucose 110 mg/dL (74-106); Potassium 3.5 mmol/L (3.5-5.1); Sodium 138 mmol/L (136-145)
[2022-02-14 14:32] LABS: Alanine Aminotransferase 14 U/L (16-61); Alkaline Phosphatase 493 U/L (45-117); Aspartate Aminotransferase 20 U/L (15-37); BUN/Creatinine Ratio 14.8; Bilirubin, Total 0.4 mg/dL (0.2-1.0); GFR African American 193 mL/min; GFR Non-African American 159 mL/min; Total Protein 6.6 g/dL (6.4-8.2)
[2022-02-14 14:33] LABS: Albumin 2.6 g/dL (3.4-5.0)
[2022-02-14] MEDS ORDERED: ONDANSETRON HCL 4 MG/2 ML VIAL IV ONE (20:00)
[2022-02-14] MEDS ORDERED: PANTOPRAZOLE 40 MG/10 ML VIAL INJ IV ONE (21:00)
[2022-02-14] MEDS: chlordiazePOXIDE HCL 25 MG CAP PO PRN (21:05)
[2022-02-14] MEDS: SODIUM CHLORIDE 0.9% 1,000 ML IV SCH (21:10)
[2022-02-14] MEDS: ONDANSETRON HCL 4 MG/2 ML VIAL IV PRN (21:32)
[2022-02-14 21:37] LABS: % Iron Saturation 12.5 % (20-55)
[2022-02-14] MEDS: LORazepam 2MG/ML-1ML VIAL IV PRN (23:41)
[2022-02-15] MEDS ORDERED: OLANZapine 5 MG TAB PO ONE (01:45)
[2022-02-15] MEDS: ONDANSETRON HCL 4 MG/2 ML VIAL IV PRN ×3 (02:35→22:56)
[2022-02-15] MEDS ORDERED: diazePAM 5 MG TAB PO ONE (04:45)
[2022-02-15 05:51] LABS: Basophils # (auto) 0 10 ^3/uL (0-0.2); Basophils % (auto) 0.5 % (0.0-2.0); Eosinophils # (auto) 0 10 ^3/uL (0-0.8); Eosinophils % (auto) 0.3 % (0.0-7.0); Hematocrit 28.2 % (41.0-53.0); Hemoglobin 9.1 g/dL (13.5-17.5); Lymphocytes # (auto) 0.5 10 ^3/uL (0.4-5.4); Lymphocytes % (auto) 7.3 % (10.0-50.0); Mean Corpuscular Hemoglobin 24.5 pg (28.0-32.0); Mean Corpuscular Hgb Conc. 32.1 g/dL (32.0-36.0); Mean Corpuscular Volume 76.4 fL (80.0-100.0); Monocytes # (auto) 0.5 10 ^3/uL (0-1.3); Monocytes % (auto) 7.6 % (0.0-12.0); Neutrophils # (auto) 5.8 10 ^3/uL (1.6-8.6); Neutrophils % (auto) 84.3 % (37.0-80.0); Nucleated Red Blood Cells % 0.1 %; White Blood Cell 6.9 10^3/uL (4.4-10.8)
[2022-02-15 05:53] LABS: Red Cell Distribution Width 21.5 % (11.8-14.3)
[2022-02-15 06:10] LABS: Albumin 2.6 g/dL (3.4-5.0); Calcium 7.9 mg/dL (8.5-10.1)
[2022-02-15 06:15] LABS: BUN/Creatinine Ratio 10.9; Bilirubin, Total 0.4 mg/dL (0.2-1.0); Total Protein 6.6 g/dL (6.4-8.2)
[2022-02-15] MEDS: PANTOPRAZOLE 40 MG/10 ML VIAL INJ IV SCH (09:03)
[2022-02-15] MEDS: ENOXAPARIN SOD 40 MG/0.4 ML SYRINGE SC SCH (10:42)
[2022-02-15] MEDS: LORazepam 2MG/ML-1ML VIAL IV PRN (10:44)
[2022-02-15] MEDS: FOLIC ACID 1 MG, MULTIPLE VITAMIN 10 ML, MAGNESIUM SULF SDV 50% 8 MEQ, THIAMINE INJ 100... INJ SCH ×5 (13:24)
[2022-02-15] MEDS ORDERED: FERROUS SULFATE 325mg EC TAB PO ONE (16:15)
[2022-02-15] MEDS: LORazepam 0.5 MG TAB PO SCH ×2 (16:50→20:15)
[2022-02-15] MEDS: LORazepam 2MG/ML-1ML VIAL IV SCH ×3 (16:51→18:41)
[2022-02-15] MEDS: SODIUM CHLORIDE 0.9% 1,000 ML IV SCH (17:02)
[2022-02-15] MEDS: chlordiazePOXIDE HCL 25 MG CAP PO PRN (23:01)
[2022-02-15 23:52] VITALS: BP 126/62
[2022-02-16] MEDS: LORazepam 0.5 MG TAB PO SCH ×5 (00:15→15:54)
[2022-02-16 05:00] VITALS: BP 120/66
[2022-02-16 05:57] LABS: Albumin 2.4 g/dL (3.4-5.0); Basophils # (auto) 0 10 ^3/uL (0-0.2); Calcium 7.9 mg/dL (8.5-10.1); Eosinophils # (auto) 0 10 ^3/uL (0-0.8); Hemoglobin 8.6 g/dL (13.5-17.5); Lymphocytes # (auto) 0.6 10 ^3/uL (0.4-5.4); Monocytes # (auto) 0.7 10 ^3/uL (0-1.3); Nucleated Red Blood Cells % 0.1 %; Potassium 3.8 mmol/L (3.5-5.1)
[2022-02-16 06:01] LABS: Basophils % (auto) 0.9 % (0.0-2.0); Eosinophils % (auto) 0.5 % (0.0-7.0); Hematocrit 26.9 % (41.0-53.0); Lymphocytes % (auto) 11.5 % (10.0-50.0); Mean Corpuscular Hemoglobin 25.3 pg (28.0-32.0); Mean Corpuscular Hgb Conc. 31.9 g/dL (32.0-36.0); Mean Corpuscular Volume 79.3 fL (80.0-100.0); Monocytes % (auto) 12.2 % (0.0-12.0); Neutrophils % (auto) 74.9 % (37.0-80.0); White Blood Cell 5.4 10^3/uL (4.4-10.8)
[2022-02-16 06:12] LABS: BUN/Creatinine Ratio 16.4; Bilirubin, Total 0.3 mg/dL (0.2-1.0); Total Protein 5.3 g/dL (6.4-8.2)
[2022-02-16 06:13] LABS: Red Cell Distribution Width 22.3 % (11.8-14.3)
[2022-02-16] MEDS: SODIUM CHLORIDE 0.9% 1,000 ML IV SCH ×2 (06:45→23:00)
[2022-02-16 09:03] VITALS: BP 126/60
[2022-02-16] MEDS: PANTOPRAZOLE 40 MG/10 ML VIAL INJ IV SCH (09:41)
[2022-02-16] MEDS: chlordiazePOXIDE HCL 25 MG CAP PO PRN ×2 (09:42→20:25)
[2022-02-16] MEDS: FERROUS SULFATE 325mg EC TAB PO SCH (09:42)
[2022-02-16] MEDS: ENOXAPARIN SOD 40 MG/0.4 ML SYRINGE SC SCH (09:42)
[2022-02-16 12:19] VITALS: BP 121/55
[2022-02-16] MEDS: FOLIC ACID 1 MG, MULTIPLE VITAMIN 10 ML, MAGNESIUM SULF SDV 50% 8 MEQ, THIAMINE INJ 100... INJ SCH ×5 (13:26)
[2022-02-16 16:29] VITALS: BP 122/54
[2022-02-16] MEDS: ONDANSETRON HCL 4 MG/2 ML VIAL IV PRN (17:21)
[2022-02-16 20:00] VITALS: BP 121/57
[2022-02-16 22:00] VITALS: BP 121/57
[2022-02-17 05:00] VITALS: BP 115/50
[2022-02-17 06:02] LABS: Basophils # (auto) 0 10 ^3/uL (0-0.2); Eosinophils # (auto) 0.1 10 ^3/uL (0-0.8); Lymphocytes # (auto) 0.7 10 ^3/uL (0.4-5.4); Mean Corpuscular Hemoglobin 25.1 pg (28.0-32.0); Monocytes # (auto) 0.5 10 ^3/uL (0-1.3); Neutrophils # (auto) 3.8 10 ^3/uL (1.6-8.6); White Blood Cell 5.2 10^3/uL (4.4-10.8)
[2022-02-17 06:08] LABS: Basophils % (auto) 0.8 % (0.0-2.0); Eosinophils % (auto) 2.6 % (0.0-7.0); Lymphocytes % (auto) 13.1 % (10.0-50.0); Mean Corpuscular Volume 78.3 fL (80.0-100.0); Monocytes % (auto) 10.5 % (0.0-12.0); Nucleated Red Blood Cells % 0.1 %; Red Blood Cells 3.58 10^6/uL (4.5-5.90); Red Cell Distribution Width 21.5 % (11.8-14.3)
[2022-02-17 06:11] LABS: Albumin 2.2 g/dL (3.4-5.0); Calcium 7.8 mg/dL (8.5-10.1); Potassium 3.8 mmol/L (3.5-5.1)
[2022-02-17 06:16] LABS: BUN/Creatinine Ratio 14.8; Bilirubin, Total 0.3 mg/dL (0.2-1.0); Total Protein 4.8 g/dL (6.4-8.2)
[2022-02-17 08:42] VITALS: BP 119/55
[2022-02-17] MEDS ORDERED: MORPHINE SULFATE INJ 2 MG/ml SYRG IV PRN ×2 (09:30→12:15)
[2022-02-17] MEDS ORDERED: MORPHINE SULFATE INJ 2 MG/ml SYRG IM ONE (09:30)
[2022-02-17] MEDS: FERROUS SULFATE 325mg EC TAB PO SCH (10:16)
[2022-02-17] MEDS: PANTOPRAZOLE 40 MG/10 ML VIAL INJ IV SCH (10:16)
[2022-02-17] MEDS: ONDANSETRON HCL 4 MG/2 ML VIAL IV PRN (10:17)
[2022-02-17] MEDS: ENOXAPARIN SOD 40 MG/0.4 ML SYRINGE SC SCH (10:17)
[2022-02-17] MEDS: FOLIC ACID 1 MG, MULTIPLE VITAMIN 10 ML, MAGNESIUM SULF SDV 50% 8 MEQ, THIAMINE INJ 100... INJ SCH ×5 (12:41)
[2022-02-17] MEDS: DICYCLOMINE HCL 10 MG CAP PO SCH ×3 (12:41→23:22)
[2022-02-17] MEDS: MORPHINE SULFATE 4 MG/ML SYR/VIAL IV PRN (15:05)
[2022-02-17] MEDS: SODIUM CHLORIDE 0.9% 1,000 ML IV SCH (15:40)
[2022-02-17 22:00] VITALS: BP 119/59
[2022-02-18] MEDS: SODIUM CHLORIDE 0.9% 1,000 ML IV SCH (00:56)
[2022-02-18 05:00] VITALS: BP 112/66
[2022-02-18 06:39] LABS: Basophils # (auto) 0 10 ^3/uL (0-0.2); Basophils % (auto) 0.8 % (0.0-2.0); Eosinophils # (auto) 0.2 10 ^3/uL (0-0.8); Eosinophils % (auto) 3.1 % (0.0-7.0); Hematocrit 28.8 % (41.0-53.0); Hemoglobin 9.3 g/dL (13.5-17.5); Lymphocytes # (auto) 0.6 10 ^3/uL (0.4-5.4); Lymphocytes % (auto) 11.3 % (10.0-50.0); Mean Corpuscular Hemoglobin 25.1 pg (28.0-32.0); Mean Corpuscular Hgb Conc. 32.1 g/dL (32.0-36.0); Mean Corpuscular Volume 78.3 fL (80.0-100.0); Monocytes # (auto) 0.6 10 ^3/uL (0-1.3); Monocytes % (auto) 10.4 % (0.0-12.0); Neutrophils % (auto) 74.4 % (37.0-80.0); Nucleated Red Blood Cells % 0.3 %; Red Blood Cells 3.69 10^6/uL (4.5-5.90); White Blood Cell 5.3 10^3/uL (4.4-10.8)
[2022-02-18 06:40] LABS: Red Cell Distribution Width 22.3 % (11.8-14.3)
[2022-02-18 06:57] LABS: Albumin 2.2 g/dL (3.4-5.0); Calcium 7.8 mg/dL (8.5-10.1); Potassium 4.1 mmol/L (3.5-5.1)
[2022-02-18 07:02] LABS: BUN/Creatinine Ratio 12.2; Bilirubin, Total 0.3 mg/dL (0.2-1.0); Total Protein 4.6 g/dL (6.4-8.2)
[2022-02-18] MEDS: DICYCLOMINE HCL 10 MG CAP PO SCH ×4 (07:09→20:00)
[2022-02-18 08:00] VITALS: BP 124/67
[2022-02-18 09:00] VITALS: BP 127/64
[2022-02-18] MEDS: ENOXAPARIN SOD 40 MG/0.4 ML SYRINGE SC SCH (11:01)
[2022-02-18] MEDS: PANTOPRAZOLE 40 MG/10 ML VIAL INJ IV SCH (11:01)
[2022-02-18] MEDS: FERROUS SULFATE 325mg EC TAB PO SCH (11:01)
[2022-02-18] MEDS: chlordiazePOXIDE HCL 25 MG CAP PO PRN (12:31)
[2022-02-18 13:00] VITALS: BP 136/74
[2022-02-18] MEDS: LORazepam 0.5 MG TAB PO PRN ×2 (13:02→20:01)
[2022-02-18] MEDS: FOLIC ACID 1 MG, MULTIPLE VITAMIN 10 ML, MAGNESIUM SULF SDV 50% 8 MEQ, THIAMINE INJ 100... INJ SCH ×5 (13:19)
[2022-02-18] MEDS: MORPHINE SULFATE 4 MG/ML SYR/VIAL IV PRN (15:01)
[2022-02-18 17:00] VITALS: BP_SYST 127; BP_SYST 134; BP_DIAS 64; BP_DIAS 77
[2022-02-18 21:46] VITALS: BP 128/71
[2022-02-19] MEDS: SODIUM CHLORIDE 0.9% 1,000 ML IV SCH ×2 (01:00→17:58)
[2022-02-19] MEDS: chlordiazePOXIDE HCL 25 MG CAP PO PRN (02:47)
[2022-02-19 04:32] VITALS: BP 130/70
[2022-02-19] MEDS: DICYCLOMINE HCL 10 MG CAP PO SCH ×4 (05:17→21:16)
[2022-02-19 05:27] LABS: Basophils # (auto) 0 10 ^3/uL (0-0.2); Basophils % (auto) 0.9 % (0.0-2.0); Eosinophils # (auto) 0.2 10 ^3/uL (0-0.8); Eosinophils % (auto) 4.4 % (0.0-7.0); Hematocrit 25.5 % (41.0-53.0); Hemoglobin 8.4 g/dL (13.5-17.5); Lymphocytes # (auto) 0.7 10 ^3/uL (0.4-5.4); Lymphocytes % (auto) 13.4 % (10.0-50.0); Mean Corpuscular Hemoglobin 25.4 pg (28.0-32.0); Mean Corpuscular Hgb Conc. 32.9 g/dL (32.0-36.0); Mean Corpuscular Volume 77.2 fL (80.0-100.0); Monocytes # (auto) 0.6 10 ^3/uL (0-1.3); Monocytes % (auto) 11.6 % (0.0-12.0); Neutrophils # (auto) 3.5 10 ^3/uL (1.6-8.6); Neutrophils % (auto) 69.7 % (37.0-80.0); Red Blood Cells 3.31 10^6/uL (4.5-5.90); White Blood Cell 5.1 10^3/uL (4.4-10.8)
[2022-02-19 05:28] LABS: Red Cell Distribution Width 22.4 % (11.8-14.3)
[2022-02-19 05:53] LABS: Potassium 3.9 mmol/L (3.5-5.1)
[2022-02-19 06:10] LABS: Albumin 2.2 g/dL (3.4-5.0); BUN/Creatinine Ratio 17.4; Bilirubin, Total 0.3 mg/dL (0.2-1.0); Calcium 7.3 mg/dL (8.5-10.1); Total Protein 4.6 g/dL (6.4-8.2)
[2022-02-19 09:00] VITALS: BP 137/78
[2022-02-19] MEDS: PANTOPRAZOLE 40 MG/10 ML VIAL INJ IV SCH (10:00)
[2022-02-19] MEDS: ENOXAPARIN SOD 40 MG/0.4 ML SYRINGE SC SCH (11:03)
[2022-02-19] MEDS: FERROUS SULFATE 325mg EC TAB PO SCH (11:03)
[2022-02-19] MEDS: FOLIC ACID 1 MG, MULTIPLE VITAMIN 10 ML, MAGNESIUM SULF SDV 50% 8 MEQ, THIAMINE INJ 100... INJ SCH ×5 (12:00)
[2022-02-19 12:56] VITALS: BP 129/76
[2022-02-19] MEDS: MORPHINE SULFATE 4 MG/ML SYR/VIAL IV PRN ×2 (15:01→18:33)
[2022-02-19 15:55] VITALS: BP 134/81
[2022-02-19 20:24] VITALS: BP 123/71
[2022-02-19 22:03] VITALS: BP 118/65
[2022-02-20] MEDS: MORPHINE SULFATE 4 MG/ML SYR/VIAL IV PRN (03:04)
[2022-02-20 04:57] VITALS: BP 129/59
[2022-02-20] MEDS: DICYCLOMINE HCL 10 MG CAP PO SCH ×4 (05:10→22:42)
[2022-02-20 06:13] LABS: Basophils # (auto) 0 10 ^3/uL (0-0.2); Basophils % (auto) 0.8 % (0.0-2.0); Eosinophils # (auto) 0.3 10 ^3/uL (0-0.8); Hemoglobin 8.9 g/dL (13.5-17.5); Lymphocytes # (auto) 0.8 10 ^3/uL (0.4-5.4); Neutrophils # (auto) 4.2 10 ^3/uL (1.6-8.6); White Blood Cell 6.2 10^3/uL (4.4-10.8)
[2022-02-20 06:15] LABS: Albumin 2.4 g/dL (3.4-5.0); Calcium 7.6 mg/dL (8.5-10.1); Potassium 4.2 mmol/L (3.5-5.1)
[2022-02-20 06:16] LABS: Eosinophils % (auto) 5.2 % (0.0-7.0); Hematocrit 26.8 % (41.0-53.0); Lymphocytes % (auto) 13.7 % (10.0-50.0); Mean Corpuscular Hemoglobin 25.9 pg (28.0-32.0); Mean Corpuscular Hgb Conc. 33.3 g/dL (32.0-36.0); Mean Corpuscular Volume 77.7 fL (80.0-100.0); Monocytes # (auto) 0.7 10 ^3/uL (0-1.3); Neutrophils % (auto) 68.3 % (37.0-80.0); Nucleated Red Blood Cells % 0.2 %; Red Blood Cells 3.45 10^6/uL (4.5-5.90)
[2022-02-20 06:19] LABS: BUN/Creatinine Ratio 16.7; Bilirubin, Total 0.5 mg/dL (0.2-1.0)
[2022-02-20 08:00] VITALS: BP 143/69
[2022-02-20] MEDS: PANTOPRAZOLE 40 MG/10 ML VIAL INJ IV SCH (10:10)
[2022-02-20] MEDS: ENOXAPARIN SOD 40 MG/0.4 ML SYRINGE SC SCH (10:10)
[2022-02-20] MEDS: FERROUS SULFATE 325mg EC TAB PO SCH (10:10)
[2022-02-20] MEDS: SODIUM CHLORIDE 0.9% 1,000 ML IV SCH (10:35)
[2022-02-20] MEDS: FOLIC ACID 1 MG, MULTIPLE VITAMIN 10 ML, MAGNESIUM SULF SDV 50% 8 MEQ, THIAMINE INJ 100... INJ SCH ×5 (12:00)
[2022-02-20 14:58] VITALS: BP 139/86
[2022-02-20] MEDS: TAMSULOSIN HYDROCHLORIDE 0.4 MG CAP PO SCH (18:03)
[2022-02-20 18:09] VITALS: BP 139/86
[2022-02-20] MEDS: chlordiazePOXIDE HCL 25 MG CAP PO PRN (20:27)
[2022-02-20] MEDS: LORazepam 2MG/ML-1ML VIAL IV PRN (22:42)
[2022-02-21] MEDS: DICYCLOMINE HCL 10 MG CAP PO SCH ×4 (06:55→22:33)
[2022-02-21 07:00] LABS: Chloride 108 mmol/L (98-107); Potassium 4.1 mmol/L (3.5-5.1); Sodium 142 mmol/L (136-145)
[2022-02-21 07:04] LABS: Albumin 2.4 g/dL (3.4-5.0); Anion Gap 13 (5-15); BUN/Creatinine Ratio 15.9; Blood Urea Nitrogen 10 mg/dL (7-18); Calcium 7.5 mg/dL (8.5-10.1); Carbon Dioxide 21 mmol/L (21-32); GFR African American 161 mL/min; GFR Non-African American 133 mL/min; Glucose 108 mg/dL (74-106)
[2022-02-21 07:07] LABS: Alanine Aminotransferase 10 U/L (16-61); Alkaline Phosphatase 527 U/L (45-117); Aspartate Aminotransferase 27 U/L (15-37); Bilirubin, Total 0.2 mg/dL (0.2-1.0); Total Protein 5.3 g/dL (6.4-8.2)
[2022-02-21 07:56] LABS: Hemoglobin 9.6 g/dL (13.5-17.5)
[2022-02-21 08:02] LABS: Basophils # (auto) 0.1 10 ^3/uL (0-0.2); Basophils % (auto) 0.9 % (0.0-2.0); Eosinophils # (auto) 0.3 10 ^3/uL (0-0.8); Eosinophils % (auto) 3.7 % (0.0-7.0); Hematocrit 28.9 % (41.0-53.0); Lymphocytes # (auto) 0.7 10 ^3/uL (0.4-5.4); Lymphocytes % (auto) 8.9 % (10.0-50.0); Mean Corpuscular Hemoglobin 25.7 pg (28.0-32.0); Mean Corpuscular Hgb Conc. 33.1 g/dL (32.0-36.0); Mean Corpuscular Volume 77.8 fL (80.0-100.0); Monocytes % (auto) 12.8 % (0.0-12.0); Neutrophils # (auto) 5.6 10 ^3/uL (1.6-8.6); Neutrophils % (auto) 73.7 % (37.0-80.0); Nucleated Red Blood Cells % 0.2 %; Red Blood Cells 3.72 10^6/uL (4.5-5.90); Red Cell Distribution Width 23.7 % (11.8-14.3); White Blood Cell 7.6 10^3/uL (4.4-10.8)
[2022-02-21 09:00] VITALS: BP 140/79
[2022-02-21] MEDS: ENOXAPARIN SOD 40 MG/0.4 ML SYRINGE SC SCH (09:47)
[2022-02-21] MEDS: FERROUS SULFATE 325mg EC TAB PO SCH (09:47)
[2022-02-21] MEDS: THIAMINE HCL 100 MG TAB PO SCH (09:47)
[2022-02-21 13:00] VITALS: BP 136/85
[2022-02-21 16:00] VITALS: BP 143/98
[2022-02-21] MEDS: Glucerna Carbsteady SHAKE Vanilla 8oz PO SCH (18:08)
[2022-02-21] MEDS: TAMSULOSIN HYDROCHLORIDE 0.4 MG CAP PO SCH (18:08)
[2022-02-22] MEDS: DICYCLOMINE HCL 10 MG CAP PO SCH ×4 (05:27→21:33)
[2022-02-22] MEDS: Glucerna Carbsteady SHAKE Vanilla 8oz PO SCH ×2 (07:38→17:32)
[2022-02-22 08:17] VITALS: BP 140/80
[2022-02-22] MEDS: THIAMINE HCL 100 MG TAB PO SCH (09:16)
[2022-02-22] MEDS: FERROUS SULFATE 325mg EC TAB PO SCH (09:16)
[2022-02-22] MEDS: ENOXAPARIN SOD 40 MG/0.4 ML SYRINGE SC SCH (09:16)
[2022-02-22] MEDS: LORazepam 2MG/ML-1ML VIAL IV PRN ×2 (09:27→17:04)
[2022-02-22 16:41] VITALS: BP 144/82
[2022-02-22] MEDS: TAMSULOSIN HYDROCHLORIDE 0.4 MG CAP PO SCH (17:30)
[2022-02-22 20:25] VITALS: BP 121/64
[2022-02-22 22:00] VITALS: BP 121/64
[2022-02-23 05:00] VITALS: BP 138/68
[2022-02-23] MEDS: DICYCLOMINE HCL 10 MG CAP PO SCH ×2 (05:49→12:01)
[2022-02-23] MEDS: Glucerna Carbsteady SHAKE Vanilla 8oz PO SCH (08:02)
[2022-02-23 08:45] VITALS: BP 129/64
[2022-02-23] MEDS: FERROUS SULFATE 325mg EC TAB PO SCH (09:20)
[2022-02-23] MEDS: THIAMINE HCL 100 MG TAB PO SCH (09:21)
[2022-02-23] MEDS: ENOXAPARIN SOD 40 MG/0.4 ML SYRINGE SC SCH (09:21)
== END 2022-02-23 13:26 | disposition hospice, home (50) | DRG 91 ==
LOC: EDBD 13:10 → ER 13:10 → OVERFLOW 20:50 → WEST WING 02-15 20:36
PROVIDERS: ADMIT Nurse Practitioner Family; ATTEND Student in an Organized Health Care Education/Training Program
DX: G92.8 Other toxic encephalopathy (principal); N18.6 End stage renal disease; I12.0 Hypertensive chronic kidney disease with stage 5 chronic kidney disease or end stage renal disease; E46 Unspecified protein-calorie malnutrition; F10.129 Alcohol abuse with intoxication, unspecified; E83.51 Hypocalcemia; D50.9 Iron deficiency anemia, unspecified; F17.210 Nicotine dependence, cigarettes, uncomplicated; G31.2 Degeneration of nervous system due to alcohol; I25.10 Atherosclerotic heart disease of native coronary artery without angina pectoris; K76.82 Hepatic encephalopathy; R62.7 Adult failure to thrive; N40.0 Benign prostatic hyperplasia without lower urinary tract symptoms; R74.8 Abnormal levels of other serum enzymes; Z20.822 Contact with and (suspected) exposure to COVID-19; Y90.8 Blood alcohol level of 240 mg/100 ml or more; Z60.2 Problems related to living alone; C61 Malignant neoplasm of prostate; F15.90 Other stimulant use, unspecified, uncomplicated; G47.00 Insomnia, unspecified; M10.9 Gout, unspecified; E11.22 Type 2 diabetes mellitus with diabetic chronic kidney disease; Z82.0 Family history of epilepsy and other diseases of the nervous system; Z83.3 Family history of diabetes mellitus; Z86.16 Personal history of COVID-19; Z86.73 Personal history of transient ischemic attack (TIA), and cerebral infarction without residual deficits; Z87.01 Personal history of pneumonia (recurrent); Z99.2 Dependence on renal dialysis; Z68.20 Body mass index [BMI] 20.0-20.9, adult; Z85.46 Personal history of malignant neoplasm of prostate
CPT/HCPCS: 36415; 70450; 80053; 80307; 80320; 82140; 82270; 82962; 83540; 83550; 85025; 87426; 93005; 96361; 96374; 96375; C9113; G0378; J2405

== ENCOUNTER 2022-03-29 19:03 | Inpatient (IN) | payer OTHER, MEDICAID ==
[~2022-03-29] VITALS: Ht 160 cm; Wt 59.6 kg
[2022-03-29 20:57] LABS: Basophils # (auto) 0 10 ^3/uL (0-0.2); Basophils % (auto) 0.3 % (0.0-2.0); Eosinophils # (auto) 0 10 ^3/uL (0-0.8); Eosinophils % (auto) 0.2 % (0.0-7.0); Lymphocytes # (auto) 0.7 10 ^3/uL (0.4-5.4)
[2022-03-29 20:59] LABS: Hematocrit 28.4 % (41.0-53.0); Hemoglobin 9.3 g/dL (13.5-17.5); Lymphocytes % (auto) 9.8 % (10.0-50.0); Mean Corpuscular Hemoglobin 25.7 pg (28.0-32.0); Mean Corpuscular Hgb Conc. 32.9 g/dL (32.0-36.0); Mean Corpuscular Volume 78.4 fL (80.0-100.0); Monocytes # (auto) 1.1 10 ^3/uL (0-1.3); Monocytes % (auto) 15.2 % (0.0-12.0); Neutrophils # (auto) 5.5 10 ^3/uL (1.6-8.6); Neutrophils % (auto) 74.5 % (37.0-80.0); Red Blood Cells 3.62 10^6/uL (4.5-5.90); White Blood Cell 7.3 10^3/uL (4.4-10.8)
[2022-03-29 21:07] LABS: Red Cell Distribution Width 21.6 % (11.8-14.3)
[2022-03-29 21:10] LABS: Albumin 2.2 g/dL (3.4-5.0); BUN/Creatinine Ratio 13.6; Calcium 7.9 mg/dL (8.5-10.1); Potassium 3.6 mmol/L (3.5-5.1)
[2022-03-29 21:12] LABS: Bilirubin, Total 0.2 mg/dL (0.2-1.0); Total Protein 5.3 g/dL (6.4-8.2)
[2022-03-29 21:17] LABS: Acetaminophen 3.5 ug/mL (10-30); Salicylate < 1.7 mg/dL (2.8-20.0)
[2022-03-29 21:38] LABS: Lactic Acid w/Reflex 3.5 mmol/L (0.4-2.0)
[2022-03-30] MEDS ORDERED: HYDROmorphone HCL 2 MG/ML VL/or syr IV ONE (00:15)
[2022-03-30] MEDS ORDERED: SODIUM CHLORIDE 0.9% 1,000 ML IV ONE (00:15)
[2022-03-30] MEDS ORDERED: ONDANSETRON HCL 4 MG/2 ML VIAL IV ONE (00:15)
[2022-03-30] MEDS ORDERED: cefTRIAXone 1GM/50ML D5W 50 ML IV ONE (01:45)
[2022-03-30] MEDS ORDERED: AZITHROMYCIN 500MG/ 250ML 250 ML IV ONE (01:45)
[2022-03-30] MEDS ORDERED: ONDANSETRON HCL 4 MG/2 ML VIAL IV PRN ×2 (02:30→13:30)
[2022-03-30] MEDS ORDERED: MORPHINE SULFATE INJ 2 MG/ml SYRG IV PRN (02:30)
[2022-03-30] MEDS ORDERED: NITROGLYCERIN 0.4 MG SL TAB SL PRN (02:30)
[2022-03-30] MEDS ORDERED: DEXTROSE (50%) 50ML SYRG IV PRN (02:30)
[2022-03-30 03:27] LABS: Urine Blood Normal /uL (Negative); Urine Specific Gravity 1.018 (1.001-1.035)
[2022-03-30 03:43] LABS: Amphetamine Screen, Urine NEGATIVE (NEGATIVE); Barbiturate Scree,Urine NEGATIVE (NEGATIVE); Benzodiazephine Screen, Urine POSITIVE (NEGATIVE); Cannabinoid Screen, Urine NEGATIVE (NEGATIVE); Cocaine Screen, Urine NEGATIVE (NEGATIVE); Opiate Scree,Urine NEGATIVE (NEGATIVE); Phencyclidine Screen, Urine NEGATIVE (NEGATIVE)
[2022-03-30] MEDS: ACCU-CHEK COMFORT CURVE STRIP VI SCH ×4 (06:10→22:00)
[2022-03-30] MEDS: InsuLIN REG 1unit/0.01ml Soln (100units/ml) SC SCH ×4 (06:10→22:00)
[2022-03-30] MEDS: cefTRIAXone 1GM/50ML D5W 50 ML IV SCH (09:40)
[2022-03-30] MEDS: AZITHROMYCIN 500MG/ 250ML 250 ML IV SCH (10:38)
[2022-03-30] MEDS: CLOPIDOGREL BISULFATE 75 MG TAB PO SCH (10:39)
[2022-03-30] MEDS: CARVEDILOL 3.125 MG TAB PO SCH (10:39)
[2022-03-30] MEDS: PANTOPRAZOLE 40 MG TAB PO SCH (10:40)
[2022-03-30] MEDS: ENOXAPARIN SOD 40 MG/0.4 ML SYRINGE SC SCH (10:40)
[2022-03-30] MEDS: ASPirin 81 mg TAB PO SCH (10:40)
[2022-03-30] MEDS: HYDROmorphone HCL 2 MG/ML VL/or syr IV PRN ×2 (14:35→20:50)
[2022-03-30 16:45] VITALS: BP 113/65
[2022-03-30] MEDS: TAMSULOSIN HYDROCHLORIDE 0.4 MG CAP PO SCH (18:00)
[2022-03-30] MEDS: ATORVASTATIN 20 MG TAB PO SCH (20:50)
[2022-03-30] MEDS: SODIUM CHLORIDE 0.9% 1,000 ML IV SCH (21:45)
[2022-03-30 22:00] VITALS: BP 105/61
[2022-03-31] MEDS: CARVEDILOL 3.125 MG TAB PO SCH ×3 (00:55→23:10)
[2022-03-31 05:00] VITALS: BP 134/62
[2022-03-31 05:26] LABS: Basophils # (auto) 0 10 ^3/uL (0-0.2); Basophils % (auto) 0.4 % (0.0-2.0); Eosinophils # (auto) 0 10 ^3/uL (0-0.8); Lymphocytes # (auto) 0.5 10 ^3/uL (0.4-5.4); Mean Corpuscular Hemoglobin 25.7 pg (28.0-32.0); Monocytes # (auto) 0.7 10 ^3/uL (0-1.3); Neutrophils % (auto) 78.5 % (37.0-80.0)
[2022-03-31 05:29] LABS: Eosinophils % (auto) 0.7 % (0.0-7.0); Hematocrit 23.4 % (41.0-53.0); Hemoglobin 7.7 g/dL (13.5-17.5); Lymphocytes % (auto) 7.9 % (10.0-50.0); Monocytes % (auto) 12.5 % (0.0-12.0); Neutrophils # (auto) 4.6 10 ^3/uL (1.6-8.6); Red Cell Distribution Width 21.1 % (11.8-14.3); White Blood Cell 5.9 10^3/uL (4.4-10.8)
[2022-03-31 05:49] LABS: Calcium 7.7 mg/dL (8.5-10.1); Potassium 4.5 mmol/L (3.5-5.1)
[2022-03-31 05:53] LABS: Albumin 2.1 g/dL (3.4-5.0); BUN/Creatinine Ratio 22.4; Bilirubin, Total 0.4 mg/dL (0.2-1.0); Total Protein 4.8 g/dL (6.4-8.2)
[2022-03-31] MEDS: InsuLIN REG 1unit/0.01ml Soln (100units/ml) SC SCH ×4 (07:00→22:00)
[2022-03-31] MEDS: ACCU-CHEK COMFORT CURVE STRIP VI SCH ×4 (07:04→22:00)
[2022-03-31] MEDS: HYDROmorphone HCL 2 MG/ML VL/or syr IV PRN ×3 (08:01→17:07)
[2022-03-31 09:00] VITALS: BP 111/58
[2022-03-31] MEDS: AZITHROMYCIN 500MG/ 250ML 250 ML IV SCH (10:00)
[2022-03-31] MEDS: HYDROcodone-ACET 10/325MG TAB PO PRN (11:32)
[2022-03-31] MEDS: SODIUM CHLORIDE 0.9% 1,000 ML IV SCH ×2 (12:44→16:27)
[2022-03-31] MEDS: cefTRIAXone 1GM/50ML D5W 50 ML IV SCH (12:46)
[2022-03-31] MEDS: ENOXAPARIN SOD 40 MG/0.4 ML SYRINGE SC SCH (12:48)
[2022-03-31] MEDS: ASPirin 81 mg TAB PO SCH (12:48)
[2022-03-31] MEDS: CLOPIDOGREL BISULFATE 75 MG TAB PO SCH (12:49)
[2022-03-31] MEDS: PANTOPRAZOLE 40 MG TAB PO SCH (12:49)
[2022-03-31 17:00] VITALS: BP 124/73
[2022-03-31] MEDS: TAMSULOSIN HYDROCHLORIDE 0.4 MG CAP PO SCH (17:03)
[2022-03-31 22:00] VITALS: BP 111/65
[2022-03-31] MEDS: ATORVASTATIN 20 MG TAB PO SCH (23:10)
[2022-04-01] MEDS: SODIUM CHLORIDE 0.9% 1,000 ML IV SCH (03:45)
[2022-04-01 05:00] VITALS: BP 106/63
[2022-04-01] MEDS: ACCU-CHEK COMFORT CURVE STRIP VI SCH (06:46)
[2022-04-01] MEDS: InsuLIN REG 1unit/0.01ml Soln (100units/ml) SC SCH (06:46)
[2022-04-01 09:00] VITALS: BP 122/72
[2022-04-01] MEDS: ASPirin 81 mg TAB PO SCH (10:19)
[2022-04-01] MEDS: PANTOPRAZOLE 40 MG TAB PO SCH (10:19)
[2022-04-01] MEDS: CLOPIDOGREL BISULFATE 75 MG TAB PO SCH (10:20)
[2022-04-01] MEDS: AZITHROMYCIN 500MG/ 250ML 250 ML IV SCH (10:20)
[2022-04-01] MEDS: cefTRIAXone 1GM/50ML D5W 50 ML IV SCH (10:20)
[2022-04-01] MEDS: CARVEDILOL 3.125 MG TAB PO SCH ×2 (10:22→21:53)
[2022-04-01] MEDS: ENOXAPARIN SOD 40 MG/0.4 ML SYRINGE SC SCH (10:23)
[2022-04-01] MEDS: HYDROmorphone HCL 2 MG/ML VL/or syr IV PRN (10:23)
[2022-04-01 13:00] VITALS: BP 142/81
[2022-04-01 17:00] VITALS: BP 116/68
[2022-04-01] MEDS ORDERED: HYDROmorphone HCL 2 MG/ML VL/or syr IV ONE (20:30)
[2022-04-01] MEDS: TAMSULOSIN HYDROCHLORIDE 0.4 MG CAP PO SCH (20:34)
[2022-04-01] MEDS: ATORVASTATIN 20 MG TAB PO SCH (21:54)
[2022-04-01 22:00] VITALS: BP 145/81
[2022-04-02] MEDS: HYDROcodone-ACET 10/325MG TAB PO PRN ×2 (03:39→20:16)
[2022-04-02 05:00] VITALS: BP 113/84
[2022-04-02] MEDS: cefTRIAXone 1GM/50ML D5W 50 ML IV SCH (08:35)
[2022-04-02 09:00] VITALS: BP 136/82
[2022-04-02] MEDS: CARVEDILOL 3.125 MG TAB PO SCH ×2 (10:20→21:51)
[2022-04-02] MEDS: AZITHROMYCIN 500MG/ 250ML 250 ML IV SCH (10:20)
[2022-04-02] MEDS: CLOPIDOGREL BISULFATE 75 MG TAB PO SCH (10:21)
[2022-04-02] MEDS: PANTOPRAZOLE 40 MG TAB PO SCH (10:21)
[2022-04-02] MEDS: ENOXAPARIN SOD 40 MG/0.4 ML SYRINGE SC SCH (10:21)
[2022-04-02 13:00] VITALS: BP 120/76
[2022-04-02 17:00] VITALS: BP 128/78
[2022-04-02] MEDS: TAMSULOSIN HYDROCHLORIDE 0.4 MG CAP PO SCH (18:35)
[2022-04-02 21:05] LABS: Basophils # (auto) 0 10 ^3/uL (0-0.2); Basophils % (auto) 0.3 % (0.0-2.0); Eosinophils # (auto) 0 10 ^3/uL (0-0.8); Lymphocytes # (auto) 0.4 10 ^3/uL (0.4-5.4); Mean Corpuscular Volume 77.7 fL (80.0-100.0); Neutrophils # (auto) 7.9 10 ^3/uL (1.6-8.6)
[2022-04-02 21:07] LABS: Eosinophils % (auto) 0.1 % (0.0-7.0); Hematocrit 25.1 % (41.0-53.0); Hemoglobin 8.3 g/dL (13.5-17.5); Lymphocytes % (auto) 4.3 % (10.0-50.0); Mean Corpuscular Hemoglobin 25.7 pg (28.0-32.0); Mean Corpuscular Hgb Conc. 33.1 g/dL (32.0-36.0); Monocytes # (auto) 1.7 10 ^3/uL (0-1.3); Monocytes % (auto) 16.7 % (0.0-12.0); Neutrophils % (auto) 78.6 % (37.0-80.0); Red Blood Cells 3.24 10^6/uL (4.5-5.90)
[2022-04-02 21:29] LABS: Red Cell Distribution Width 21.2 % (11.8-14.3)
[2022-04-02] MEDS: ATORVASTATIN 20 MG TAB PO SCH (21:51)
[2022-04-02 22:00] VITALS: BP 122/66
[2022-04-02] MEDS ORDERED: KETOROLAC TROMETH 30 MG/ML 1ML VIAL IV ONE (22:30)
[2022-04-03 05:00] VITALS: BP 99/57
[2022-04-03] MEDS: PANTOPRAZOLE 40 MG TAB PO SCH (09:40)
[2022-04-03] MEDS: CLOPIDOGREL BISULFATE 75 MG TAB PO SCH (09:40)
[2022-04-03] MEDS: ENOXAPARIN SOD 40 MG/0.4 ML SYRINGE SC SCH (09:40)
[2022-04-03] MEDS: cefTRIAXone 1GM/50ML D5W 50 ML IV SCH (09:41)
[2022-04-03] MEDS: AZITHROMYCIN 500MG/ 250ML 250 ML IV SCH (09:41)
[2022-04-03] MEDS: CARVEDILOL 3.125 MG TAB PO SCH ×2 (09:41→21:25)
[2022-04-03] MEDS ORDERED: DEXTROSE (50%) 50ML SYRG IV PRN (10:15)
[2022-04-03] MEDS ORDERED: THIAMINE 100mg/ml INJ (200mg/2ml VIAL) IV ONE (10:15)
[2022-04-03 10:25] LABS: Hepatitis B Surface Antibody Negative (Negative)
[2022-04-03] MEDS: ACCU-CHEK COMFORT CURVE STRIP VI SCH ×3 (12:00→23:27)
[2022-04-03] MEDS: InsuLIN REG 1unit/0.01ml Soln (100units/ml) SC SCH ×3 (12:00→23:29)
[2022-04-03 12:21] LABS: Hepatitis C Antibody Negative (Negative)
[2022-04-03 13:00] VITALS: BP 101/49
[2022-04-03] MEDS: CLINDAMYCIN 300MG IV 50 ML IV SCH ×2 (15:33→21:24)
[2022-04-03] MEDS: HYDROcodone-ACET 10/325MG TAB PO PRN ×2 (15:34→21:26)
[2022-04-03 17:00] VITALS: BP 105/66
[2022-04-03] MEDS: TAMSULOSIN HYDROCHLORIDE 0.4 MG CAP PO SCH (17:50)
[2022-04-03] MEDS: ATORVASTATIN 20 MG TAB PO SCH (21:26)
[2022-04-03 22:00] VITALS: BP 108/48
[2022-04-04 05:00] VITALS: BP 123/71
[2022-04-04] MEDS: InsuLIN REG 1unit/0.01ml Soln (100units/ml) SC SCH ×4 (05:08→23:05)
[2022-04-04] MEDS: ACCU-CHEK COMFORT CURVE STRIP VI SCH ×4 (05:09→23:05)
[2022-04-04] MEDS: CLINDAMYCIN 300MG IV 50 ML IV SCH ×3 (05:09→21:37)
[2022-04-04 05:24] LABS: Albumin 1.7 g/dL (3.4-5.0); Calcium 7.6 mg/dL (8.5-10.1); Potassium 4.2 mmol/L (3.5-5.1)
[2022-04-04 05:27] LABS: Bilirubin, Total 0.2 mg/dL (0.2-1.0); Total Protein 4.9 g/dL (6.4-8.2)
[2022-04-04 07:22] LABS: Basophils # (auto) 0 10 ^3/uL (0-0.2); Eosinophils # (auto) 0 10 ^3/uL (0-0.8); Eosinophils % (auto) 0.6 % (0.0-7.0); Neutrophils % (auto) 74.7 % (37.0-80.0)
[2022-04-04 07:24] LABS: Basophils % (auto) 0.4 % (0.0-2.0); Hematocrit 23.4 % (41.0-53.0); Hemoglobin 7.7 g/dL (13.5-17.5); Lymphocytes # (auto) 0.6 10 ^3/uL (0.4-5.4); Lymphocytes % (auto) 8.1 % (10.0-50.0); Mean Corpuscular Hemoglobin 25.7 pg (28.0-32.0); Mean Corpuscular Hgb Conc. 32.8 g/dL (32.0-36.0); Mean Corpuscular Volume 78.6 fL (80.0-100.0); Monocytes # (auto) 1.2 10 ^3/uL (0-1.3); Monocytes % (auto) 16.2 % (0.0-12.0); Neutrophils # (auto) 5.7 10 ^3/uL (1.6-8.6); Red Blood Cells 2.98 10^6/uL (4.5-5.90); White Blood Cell 7.6 10^3/uL (4.4-10.8)
[2022-04-04 07:33] LABS: Red Cell Distribution Width 20.7 % (11.8-14.3)
[2022-04-04 08:00] VITALS: BP 107/68
[2022-04-04] MEDS: AZITHROMYCIN 500MG/ 250ML 250 ML IV SCH (10:16)
[2022-04-04] MEDS: cefTRIAXone 1GM/50ML D5W 50 ML IV SCH (10:16)
[2022-04-04] MEDS: THIAMINE 100mg/ml INJ (200mg/2ml VIAL) IV SCH (10:16)
[2022-04-04] MEDS: PANTOPRAZOLE 40 MG TAB PO SCH (10:16)
[2022-04-04] MEDS: CLOPIDOGREL BISULFATE 75 MG TAB PO SCH (10:16)
[2022-04-04] MEDS: CARVEDILOL 3.125 MG TAB PO SCH ×2 (10:19→21:38)
[2022-04-04] MEDS ORDERED: FERROUS SULFATE 325mg EC TAB PO ONE (10:30)
[2022-04-04 11:58] VITALS: BP 109/64
[2022-04-04] MEDS: HYDROcodone-ACET 10/325MG TAB PO PRN (13:15)
[2022-04-04 16:56] VITALS: BP 101/59
[2022-04-04] MEDS: FERROUS SULFATE 325mg EC TAB PO SCH (18:36)
[2022-04-04] MEDS: TAMSULOSIN HYDROCHLORIDE 0.4 MG CAP PO SCH (18:37)
[2022-04-04] MEDS: ATORVASTATIN 20 MG TAB PO SCH (21:38)
[2022-04-04 21:41] VITALS: BP 116/66
[2022-04-05] MEDS: HYDROcodone-ACET 10/325MG TAB PO PRN ×2 (03:12→09:00)
[2022-04-05 05:00] VITALS: BP 115/70
[2022-04-05] MEDS: ACCU-CHEK COMFORT CURVE STRIP VI SCH ×2 (05:05→12:00)
[2022-04-05] MEDS: InsuLIN REG 1unit/0.01ml Soln (100units/ml) SC SCH ×2 (05:06→12:35)
[2022-04-05] MEDS: CLINDAMYCIN 300MG IV 50 ML IV SCH (05:06)
[2022-04-05 08:59] VITALS: BP 106/64
[2022-04-05] MEDS: FERROUS SULFATE 325mg EC TAB PO SCH (09:00)
[2022-04-05] MEDS: cefTRIAXone 1GM/50ML D5W 50 ML IV SCH (09:00)
[2022-04-05 09:05] VITALS: BP 108/60
[2022-04-05] MEDS ORDERED: AZITHROMYCIN 250 MG TAB PO SCH (10:00)
[2022-04-05] MEDS ORDERED: AMOX500T86 PO (10:03)
[2022-04-05] MEDS ORDERED: FERR-20 PO (10:03)
[2022-04-05] MEDS ORDERED: PANT40TA2 PO (10:03)
[2022-04-05] MEDS: THIAMINE 100mg/ml INJ (200mg/2ml VIAL) IV SCH (11:25)
[2022-04-05] MEDS: CLOPIDOGREL BISULFATE 75 MG TAB PO SCH (11:25)
[2022-04-05] MEDS: PANTOPRAZOLE 40 MG TAB PO SCH (11:26)
[2022-04-05] MEDS: CARVEDILOL 3.125 MG TAB PO SCH (11:26)
[2022-04-05 12:27] VITALS: BP 120/67
== END 2022-04-05 14:27 | disposition hospice, inpatient (51) | DRG 871 ==
LOC: EDBD 19:03 → ER 19:03 → TELE 03-30 02:34 → TELE-CENTR 03-30 16:32 → CENTRAL 03-31 12:21
PROVIDERS: ADMIT Nurse Practitioner; ATTEND Internal Medicine
DX: A41.9 Sepsis, unspecified organism (principal); E43 Unspecified severe protein-calorie malnutrition; I21.A1 Myocardial infarction type 2; G92.8 Other toxic encephalopathy; J69.0 Pneumonitis due to inhalation of food and vomit; I50.22 Chronic systolic (congestive) heart failure; E11.9 Type 2 diabetes mellitus without complications; F10.129 Alcohol abuse with intoxication, unspecified; R77.8 Other specified abnormalities of plasma proteins; I11.0 Hypertensive heart disease with heart failure; D63.8 Anemia in other chronic diseases classified elsewhere; Z20.822 Contact with and (suspected) exposure to COVID-19; F17.210 Nicotine dependence, cigarettes, uncomplicated; I25.10 Atherosclerotic heart disease of native coronary artery without angina pectoris; N40.0 Benign prostatic hyperplasia without lower urinary tract symptoms; Z79.84 Long term (current) use of oral hypoglycemic drugs; Z98.61 Coronary angioplasty status; Z51.5 Encounter for palliative care; Z86.73 Personal history of transient ischemic attack (TIA), and cerebral infarction without residual deficits; Z83.3 Family history of diabetes mellitus; Z82.0 Family history of epilepsy and other diseases of the nervous system; Z85.46 Personal history of malignant neoplasm of prostate; I25.2 Old myocardial infarction; Z90.49 Acquired absence of other specified parts of digestive tract; Z68.20 Body mass index [BMI] 20.0-20.9, adult
CPT/HCPCS: 36415; 70450; 71045; 80053; 80307; 80320; 80329; 81003; 82962; 83605; 84132; 84484; 85025; 86706; 86803; 87081; 87426; 93005; 96361; 96365; 96366; 96367; 96375; 97163; G0378; J0696; J1815; J1885; J2405; J3490